=== PATIENT | female | born 1965 | race Caucasian/White ===

== ENCOUNTER → 2020-03-19 10:15 | Outpatient (CLI) | payer OTHER, SELFPAY ==
--- NOTE | ~2020-03-19 | US_ITS ---
EXAMINATION: US soft tissue UE LT DATE: 03/19/2020 10:30 INDICATION: Localized swelling, mass and lump at the posterior left upper arm. TECHNIQUE: Multiple grayscale and Doppler ultrasound images of the of concern at the posterior left u pper arm were obtained. COMPARISON: None FINDINGS: There is a normal appearance to subcutaneous fat and underlying musculature in the region of concern. No abnormal masses or fluid collections identified. IMPRESSION: 1. Normal study. No correlate identified for reported palpable abnormality at the posterior left uppe r arm. Reviewed, dictated and finalized at location A. IMPRESSION: 1. Normal study. No correlate identified for reported palpable abnormality at t he posterior left upper arm.
== END ==
PROVIDERS: PCP Family Medicine; Visit Provider Family Medicine
DX: R22.9 Localized swelling, mass and lump, unspecified (principal)
CPT/HCPCS: 76882

== ENCOUNTER 2020-05-22 00:23 | Outpatient (CLI) | payer OTHER, SELFPAY ==
[2020-05-22 19:00] LABS: SARS-CoV-2 RNA PCR Negative
== END 2020-05-22 00:24 | disposition home or self-care (01) ==
LOC: ANHCOVIDDT 00:23
PROVIDERS: PCP Family Medicine; Visit Provider Surgery Plastic and Reconstructive Surgery
DX: Z01.812 Encounter for preprocedural laboratory examination (principal); Z20.828 Contact with and (suspected) exposure to other viral communicable diseases; M67.439 Ganglion, unspecified wrist
CPT/HCPCS: 87635; C9803; U0003

== ENCOUNTER 2020-05-24 00:57 | Day surgery (SDC) | payer OTHER, SELFPAY ==
[2020-05-14 14:12] VITALS: BMI 23.4
[2020-05-24] MEDS: LACTATED RINGERS 1,000 ML 30 ML IV CONT (09:00)
--- NOTE | 2020-05-24 09:46 | WPDANESEPPF ---
Anes - Initial Pre Proc Eval Procedure: Operation Date: 05/24/20 10:30 Proposed Procedures p Excision Ganglion Cyst Right Wrist - Endy Espinoza MD Date/Time: 05/24/20 09:46 Surgeon: Endy Espinoza MD Pre Op Diagnosis: Ganglion Cyst Right Wrist Patient Data Age: 54 Gender: F Height: 5 ft 7 in Weight: 71.5 kg Allergies Allergy/AdvReac Type Severity Reaction Status Date / Time No Known Allergies Allergy Mild Verified 05/24/20 09:13 Home Medications Medication Instructions Recorded Confirmed Type ivermectin 1 % topical cream 1 applic TOPICAL DAILY 04/30/20 05/24/20 History calcium carbonate-vitamin D3 1 tablet PO DAILY 05/14/20 05/24/20 History [Calcium 500 + D] cholecalciferol (vitamin D3) 50 mcg PO DAILY 05/14/20 05/24/20 History [Vitamin D3] cranberry 500 mg PO DAILY 05/14/20 05/24/20 History multivit with min-folic acid 1 mg PO DAILY 05/14/20 05/24/20 History [Adult One Daily Multivitamin] docusate sodium 100 mg capsule 100 mg PO BID #14 cap 05/21/20 05/24/20 Rx ondansetron HCl 4 mg tablet 4 mg PO Q6H PRN #30 tablet 05/21/20 05/24/20 Rx hydrocodone 5 mg-acetaminophen 325 1 tablet PO Q6H PRN #15 tablet 05/23/20 05/24/20 Rx mg tablet Patient hx anesthesia problems: none Family hx anesthesia problems: none PMFSH Past Medical History Medical History History of shingles Surgical History Surgical History History of Family History Family History Father Hypertension Carcinoma of colon Malignant neoplasm of prostate Grandparent Cerebrovascular accident Other Family history of coronary artery disease Social History Social History Smoking status: Never smoker Second hand tobacco smoke exposure: No Alcohol intake: current Drinks per week: 3 Living arrangements: with family Anes - Eval Final PreProcedure Day of Procedure 05/24/20 09:46 Patient weight: normal Heart: regular rate and rhythm Lungs: clear to auscultation Airway: Mallampati scale class II Neurological: alert and oriented Last oral intake: >/= 8 hours ASA classification: I Emergent: no Anesthetic plan: proceed Anesthesia type and monitoring: general GIVS and standard monitoring Informed Consent: The patient's anesthetic plan and its attendant risks and benefits were discussed with the patient/family/POA. Questions were solicited and answers provided to the satisfaction of the patient/family/POA.
--- NOTE | 2020-05-24 10:30 | SUR.PREOP ---
PT INFORMED OF DELAY W/SURGEON/ ACKNOWLEDGES UNDERSTANDING/COMFORT MEASURES PROVIDED.
--- NOTE | 2020-05-24 10:55 | WPDHPUPDATE1 ---
History and Physical Update Update Date/Time: 05/24/20 10:55 History and Physical has been reviewed, including an updated exam of the patient. There are NO changes in the patient's condition. Risks, benefits, and alternatives have been discussed and questions answered. Patient agrees to proceed with procedure.
--- NOTE | 2020-05-24 11:17 | PM.PROC ---
Procedure Note - Detailed Date of procedure: 05/24/20 Pre-op diagnosis: Ganglion Cyst Right Wrist Post-op diagnosis: same Procedure performed: Excision right dorsal wrist ganglion Description of procedure: Patient was marked in the preoperative holding area with her verification. She was taken to the operating room placed supine on the operating room table. Anesthesia was provided by anesthesiology and prepped and draped in a standard sterile fashion. Surgical time-out was taken. 1% lidocaine and 0.25% Marcaine with epinephrine was used anesthetize locally. Esmarch was used to exsanguinate the arm and tourniquet inflated to 250 mmHg. Fifteen blade used to make an incision over the mass. Dissection was continued down to the was identified completely removed coming off joint space. There is no evidence of neurovascular or tendon injury. Tourniquet was released. I verified hemostasis. Irrigated. Closed with 5 0 nylon. Xeroform fluffs Shane and an Alex were used for final dressing. She was woken taken the PACU without difficulty. All instrument sponge counts were correct at the end of the case. Anesthesia: MAC Surgeon: Endy Espinoza MD Estimated blood loss (mL): 5 Drains: No Packing: No Pathology: yes (Ganglion cyst) Complications: No immediate complications Condition: stable Disposition: PACU Findings: Cyst wall identified. Followed to base and removed. No evidence of neurovascular or tendon injury.
[2020-05-24] MEDS: ceFAZolin 2 GM/D5W 50 ML 2 GM/50 ML BAG IVPB (11:21)
[2020-05-24] MEDS: LIDO 1%/EPINEPHRINE 1:100,000 20 ML VIAL INFILTRATE (11:53)
[2020-05-24 12:07] VITALS: BP 92/51; PULSE 70; RESP 14; O2SAT 97
[2020-05-24 12:37] VITALS: BP 107/59; PULSE 69; RESP 14
[2020-05-24 13:07] VITALS: BP 113/61; PULSE 60; RESP 14
[2020-05-24 13:25] VITALS: BP 114/54; PULSE 65; RESP 14
== END 2020-05-24 13:35 | disposition home or self-care (01) ==
PROVIDERS: PCP Family Medicine; Visit Provider Surgery Plastic and Reconstructive Surgery
PROC: (CPT 25111; principal; 2020-05-24 10:30)
DX: M67.431 Ganglion, right wrist (principal)
CPT/HCPCS: 25111; 88305; J0690; J2250; J2704; J3010; J7120

== ENCOUNTER → 2020-09-10 15:24 | Outpatient (CLI) | payer OTHER, SELFPAY ==
--- NOTE | ~2020-09-10 | MM_ITS ---
EXAMINATION: MM screening [facility] BI w paulino HISTORY: Screening mammogram TECHNIQUE: Craniocaudal and mediolateral oblique 3-D tomosynthesis images were obtained and synthetic 2-D images were generated. CAD analysis was submitted and interpreted. COMPARISON: 08/19/2019, 06/14/2018, 09/19/2016 BREAST PARENCHYMAL COMPOSITION: The breasts are heterogeneously dense, which may obscure small masses . FINDINGS: There is no evidence of suspicious mass, calcification, or architectural distortion to sugg est malignancy in either breast. There has been no suspicious interval change. IMPRESSION: 1. No mammographic evidence of malignancy. 2. Recommend routine screening mammography in one year. BI-RADS Category 1: Negative Reviewed, dictated and finalized at location A. [employer]
== END ==
PROVIDERS: PCP Family Medicine; Visit Provider Obstetrics & Gynecology
DX: Z12.31 Encounter for screening mammogram for malignant neoplasm of breast (principal)
CPT/HCPCS: 77063; 77067

== ENCOUNTER 2021-06-03 00:29 | Day surgery (SDC) | payer OTHER, SELFPAY ==
[2021-05-29 13:07] VITALS: BMI 24.0
--- NOTE | 2021-05-31 15:29 | PM.HPGS ---
History of Present Illness History of Present Illness Consent: Risks, benefits, and alternatives have been discussed and questions answered. Patient agrees to proceed with procedure. Chief complaint: dysphagia Narrative: Michelle Paulino is a 55 year old female is referred by Dr. Luis WHELAN for evaluation of dysphagia. Michelle reports that for approximately 1-2 years now with the sensation of something caught in her throat. she has not actually had a feeling that food is not going down, nor has she had to leave the table because something felt stuck. The fullness in her throat is continuous and began almost 1 year ago.Sensation is located right above the sternal notch. The sensation is intermittent but it does happen daily. Back in January, she had a laryngoscopy that showed mucous stranding and edema and erythema of the atenoid cartilage and post-cricoid space suggestive of reflux (records reviewed). She was started on omeprazole 40 mg daily which she has taken daily for past 6 months with little relief in symptoms. She can not identify any particular triggers that make the sensation worse or if they happen at a particular time of day. States sensation is not always associated with eating or drinking but does occur during these times. She denies any coughing food back up or coughing with drinking. She denies any N/V. She does have occasional heartburn associated with large meals. She denies any abdominal pain or changes in bowel habits. No fevers or weight loss. No family hx of esophageal cancers and she is a non-smoker. Never had EGD. Review of Systems Review of Systems: All systems reviewed & are unremarkable except as noted in HPI and below PMFSH Past Medical History Medical History History of shingles Surgical History Surgical History History of Family History Family History Father Hypertension Carcinoma of colon Malignant neoplasm of prostate Grandparent Cerebrovascular accident Other Family history of coronary artery disease Social History Social History Smoking status: Never smoker Second hand tobacco smoke exposure: No Alcohol intake: current Drinks per week: 3 Alcohol use details: social Substance use: never Substance use type: does not use Living arrangements: with family Spiritual care concerns: No Meds Home Medications and Allergies Home Medications Medication Instructions Recorded Confirmed Type ivermectin 1 % topical cream 1 applic TOPICAL DAILY 04/30/20 06/03/21 History Adult One Daily Multivitamin 1 mg PO DAILY 05/14/20 06/03/21 History calcium carbonate-vitamin D3 1 tablet PO DAILY 05/14/20 06/03/21 History [Calcium 500 + D] cholecalciferol (vitamin D3) 50 mcg PO DAILY 05/14/20 06/03/21 History [Vitamin D3] omeprazole 40 mg capsule,delayed 40 mg PO DAILY 09/06/20 06/03/21 History release chondroitin sulfate 600 2 tablet PO DAILY tablet 05/14/21 06/03/21 History mg-turmeric 125 mg tablet cranberry 500 mg capsule 2,000 mg PO DAILY cap 05/14/21 06/03/21 History fluticasone propionate 50 1 spray INTRANASAL DAILY 05/14/21 06/03/21 History mcg/actuation nasal spray,suspension Allergies Allergy/AdvReac Type Severity Reaction Status Date / Time No Known Allergies Allergy Mild Verified 06/03/21 08:45 Exam Const: General: alert Orientation/consciousness: patient oriented x3 Resp: Auscultation: clear to auscultation bilaterally Cardio: Rhythm: regular rhythm GI: GI Palp: Yes Soft to palpation and No Tenderness to palpation present (GI) Neuro: General: patient oriented x3 Assessment and Plan Assessment and plan (1) Dysphagia: Code(s): R13.10 - Dysphagia, unspecified Status: Acute Assessment and P
[2021-06-03 08:46] VITALS: BP 115/53; PULSE 69; RESP 18; TEMP 36.8; O2SAT 100; BMI 24.3
[2021-06-03] MEDS: LACTATED RINGERS 1,000 ML 150 ML IV CONT (08:48)
--- NOTE | 2021-06-03 09:28 | WPDANESEPPF ---
Anes - Initial Pre Proc Eval Procedure: Operation Date: 06/03/21 09:30 Proposed Procedures p Esophagogastroduodenoscopy - Beka Seymour MD Date/Time: 06/03/21 09:28 Surgeon: Beka Seymour MD Pre Op Diagnosis: dysphagia Patient Data Age: 55 Gender: F Height: 1.7 m Weight: 70.5 kg Last Vital Signs Temp 98.3 F 06/03/21 08:46 Pulse 69 06/03/21 08:46 Resp 18 06/03/21 08:46 BP 115/53 L 06/03/21 08:46 Pulse Ox 100 06/03/21 08:46 Allergies Allergy/AdvReac Type Severity Reaction Status Date / Time No Known Allergies Allergy Mild Verified 06/03/21 08:45 Home Medications Medication Instructions Recorded Confirmed Type ivermectin 1 % topical cream 1 applic TOPICAL DAILY 04/30/20 06/03/21 History Adult One Daily Multivitamin 1 mg PO DAILY 05/14/20 06/03/21 History calcium carbonate-vitamin D3 1 tablet PO DAILY 05/14/20 06/03/21 History [Calcium 500 + D] cholecalciferol (vitamin D3) 50 mcg PO DAILY 05/14/20 06/03/21 History [Vitamin D3] omeprazole 40 mg capsule,delayed 40 mg PO DAILY 09/06/20 06/03/21 History release chondroitin sulfate 600 2 tablet PO DAILY tablet 05/14/21 06/03/21 History mg-turmeric 125 mg tablet cranberry 500 mg capsule 2,000 mg PO DAILY cap 05/14/21 06/03/21 History fluticasone propionate 50 1 spray INTRANASAL DAILY 05/14/21 06/03/21 History mcg/actuation nasal spray,suspension Patient hx anesthesia problems: none Family hx anesthesia problems: none Results Review: All pre-operative results and documents have been reviewed as part of the pre-operative evaluation. [facility] Past Medical History Medical History History of shingles Surgical History Surgical History History of Family History Family History Father Hypertension Carcinoma of colon Malignant neoplasm of prostate Grandparent Cerebrovascular accident Other Family history of coronary artery disease Social History Social History Smoking status: Never smoker Second hand tobacco smoke exposure: No Alcohol intake: current Drinks per week: 3 Alcohol use details: social Substance use: never Substance use type: does not use Living arrangements: with family Spiritual care concerns: No Anes - Eval Final PreProcedure Day of Procedure 06/03/21 09:28 Patient weight: normal Heart: regular rate and rhythm Lungs: clear to auscultation Airway: Mallampati scale class II Neurological: alert and oriented Last oral intake: >/= 8 hours ASA classification: II Emergent: no Anesthetic plan: proceed Anesthesia type and monitoring: general GIVS and standard monitoring Results Review: All pre-operative results and documents have been reviewed as part of the pre-operative evaluation. Informed Consent: The patient's anesthetic plan and its attendant risks and benefits were discussed with the patient/family/POA. Questions were solicited and answers provided to the satisfaction of the patient/family/POA.
[2021-06-03 09:48] VITALS: BP 89/47; PULSE 67; RESP 17; O2SAT 100
[2021-06-03 09:58] VITALS: BP 93/45; PULSE 65; RESP 19; O2SAT 100
[2021-06-03 10:08] VITALS: BP 124/65; PULSE 60; RESP 19; O2SAT 100
== END 2021-06-03 10:25 | disposition home or self-care (01) ==
PROVIDERS: PCP Family Medicine; Visit Provider Internal Medicine Gastroenterology
PROC: 0DJ08ZZ Inspection of Upper Intestinal Tract, Via Natural or Artificial Opening Endoscopic (ICD-10-PCS; CPT 43235; principal; 2021-06-03 09:30)
DX: K25.9 Gastric ulcer, unspecified as acute or chronic, without hemorrhage or perforation (principal); R13.10 Dysphagia, unspecified
CPT/HCPCS: 43239; 87081; 88305; J2704; J7120

== ENCOUNTER 2021-09-27 00:42 | Day surgery (SDC) | payer OTHER, SELFPAY ==
[2021-09-19 09:15] VITALS: BMI 24.1
[2021-09-27 09:35] VITALS: BP 113/52; PULSE 63; RESP 18; TEMP 37.7; O2SAT 100; BMI 24.3
--- NOTE | 2021-09-27 09:36 | WPDGICN ---
Assessment and Plan Assessment and plan (1) Gastric ulcer: Code(s): K25.9 - Gastric ulcer, unspecified as acute or chronic, without hemorrhage or perforation Status: Inactive Assessment and Plan: EGD with possible biopsy or dilatation or cautery. GI Consult Note Consult date/time: 09/27/21 09:36 HPI: Michelle Paulino is a 56 year old female who comes in for EGD for evaluation of ulcers. Several months ago she was found to have multiple linear gastric ulcers. This was despite the fact that she had been on omeprazole for about 5 months prior to that. The omeprazole had been started because she had had a sticking sensation in her throat and ENT evaluation revealed some erythema suggestive of possible reflux related issues. That symptom however had not responded to the omeprazole. Although did not find a stricture, her EGD revealed multiple linear ulcers and also gastritis in the antrum. She was negative for H pylori. At that time she had been occasionally using ibuprofen, perhaps twice a week, for headaches. She is not having any symptoms now. The sticking sensation that she was having in her throat is less frequent. She denies abdominal pain nausea or vomiting. Review of Systems Review of Systems: All systems reviewed & are unremarkable except as noted in HPI and below PMFSH Past Medical History Medical History Gastric ulcer Migraines Surgical History Surgical History History of Family History Family History Father Hypertension Carcinoma of colon Malignant neoplasm of prostate Grandparent Cerebrovascular accident Mother Cerebrovascular accident Sibling No problems noted. 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 Gender identity (if verbalized by the patient): Female Spiritual care concerns: No Meds Home Medications and Allergies Home Medications Medication Instructions Recorded Confirmed Type ivermectin 1 % topical cream 1 applic TOPICAL DAILY 04/30/20 09/19/21 History calcium carbonate-vitamin D3 1 tablet PO DAILY 05/14/20 09/19/21 History [Calcium 500 + D] cholecalciferol (vitamin D3) 50 mcg PO DAILY 05/14/20 09/19/21 History [Vitamin D3] multivit with min-folic acid 1 mg PO DAILY 05/14/20 09/19/21 History [Adult One Daily Multivitamin] chondroitin sulfate 600 2 tablet PO DAILY tablet 05/14/21 09/19/21 History mg-turmeric 125 mg tablet cranberry 500 mg capsule 2,000 mg PO DAILY cap 05/14/21 09/19/21 History sucralfate 1 gram tablet 1 g PO QID #120 tablet 06/04/21 09/19/21 Rx Allergies Allergy/AdvReac Type Severity Reaction Status Date / Time No Known Allergies Allergy Mild Verified 09/27/21 09:34 Exam Const: General: alert Orientation/consciousness: patient oriented x3 Resp: Auscultation: clear to auscultation bilaterally Cardio: Rhythm: regular rhythm GI: GI Palp: Yes Soft to palpation and No Tenderness to palpation present (GI) Neuro: General: patient oriented x3
--- NOTE | 2021-09-27 09:41 | WPDANESEPPF ---
Anes - Initial Pre Proc Eval Procedure: Operation Date: 09/27/21 11:00 Proposed Procedures p Esophagogastroduodenoscopy - Beka Seymour MD Date/Time: 09/27/21 09:41 Surgeon: Beka Seymour MD Pre Op Diagnosis: gastric ulcer Patient Data Age: 56 Gender: F Height: 1.7 m Weight: 70.3 kg Last Vital Signs Temp 37.7 C H 09/27/21 09:35 Pulse 63 09/27/21 09:35 Resp 18 09/27/21 09:35 BP 113/52 L 09/27/21 09:35 Pulse Ox 100 09/27/21 09:35 Allergies Allergy/AdvReac Type Severity Reaction Status Date / Time No Known Allergies Allergy Mild Verified 09/27/21 09:34 Home Medications Medication Instructions Recorded Confirmed Type ivermectin 1 % topical cream 1 applic TOPICAL DAILY 04/30/20 09/19/21 History calcium carbonate-vitamin D3 1 tablet PO DAILY 05/14/20 09/19/21 History [Calcium 500 + D] cholecalciferol (vitamin D3) 50 mcg PO DAILY 05/14/20 09/19/21 History [Vitamin D3] multivit with min-folic acid 1 mg PO DAILY 05/14/20 09/19/21 History [Adult One Daily Multivitamin] chondroitin sulfate 600 2 tablet PO DAILY tablet 05/14/21 09/19/21 History mg-turmeric 125 mg tablet cranberry 500 mg capsule 2,000 mg PO DAILY cap 05/14/21 09/19/21 History sucralfate 1 gram tablet 1 g PO QID #120 tablet 06/04/21 09/19/21 Rx Patient hx anesthesia problems: none Family hx anesthesia problems: none Results Review: All pre-operative results and documents have been reviewed as part of the pre-operative evaluation. [facility] Past Medical History Medical History Gastric ulcer Migraines Surgical History Surgical History History of Family History Family History Father Hypertension Carcinoma of colon Malignant neoplasm of prostate Grandparent Cerebrovascular accident Mother Cerebrovascular accident Sibling No problems noted. 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 Gender identity (if verbalized by the patient): Female Spiritual care concerns: No Anes - Eval Final PreProcedure Day of Procedure 09/27/21 09:41 Patient weight: normal Heart: regular rate and rhythm Lungs: clear to auscultation Airway: Mallampati scale class II Neurological: alert and oriented Last oral intake: >/= 8 hours ASA classification: II Emergent: no Anesthetic plan: proceed Anesthesia type and monitoring: general GIVS and standard monitoring Results Review: All pre-operative results and documents have been reviewed as part of the pre-operative evaluation. Informed Consent: The patient's anesthetic plan and its attendant risks and benefits were discussed with the patient/family/POA. Questions were solicited and answers provided to the satisfaction of the patient/family/POA.
[2021-09-27] MEDS: LACTATED RINGERS 1,000 ML 150 ML IV CONT (09:43)
[2021-09-27] MEDS: BENZOCAINE (*SP) 60 ML SPRAY CAN (HURRICAINE) 1 SPRAY MUCOUS MEM (09:51)
[2021-09-27 09:59] VITALS: BP 105/58; PULSE 66; RESP 14; O2SAT 99
[2021-09-27 10:09] VITALS: BP 107/68; PULSE 56; RESP 15; O2SAT 99
[2021-09-27 10:19] VITALS: BP 104/59; PULSE 54; RESP 15; O2SAT 100
== END 2021-09-27 10:32 | disposition home or self-care (01) ==
PROVIDERS: PCP Family Medicine; Visit Provider Internal Medicine Gastroenterology
PROC: 0DJ08ZZ Inspection of Upper Intestinal Tract, Via Natural or Artificial Opening Endoscopic (ICD-10-PCS; CPT 43235; principal; 2021-09-27 11:00)
DX: Z09 Encounter for follow-up examination after completed treatment for conditions other than malignant neoplasm (principal); K29.60 Other gastritis without bleeding; Z87.11 Personal history of peptic ulcer disease
CPT/HCPCS: 43239; 87081; J2704; J7120

== ENCOUNTER → 2021-11-05 10:25 | Outpatient (CLI) | payer OTHER, SELFPAY ==
--- NOTE | ~2021-11-05 | MM_ITS ---
EXAMINATION: MM screening [facility] BI w paulino HISTORY: Screening mammogram TECHNIQUE: Craniocaudal and mediolateral oblique 3-D tomosynthesis images were obtained and synthetic 2-D images were generated. CAD analysis was submitted and interpreted. COMPARISON: 09/10/2020, 08/19/2019, 06/14/2018 BREAST PARENCHYMAL COMPOSITION: The breasts are heterogeneously dense, which may obscure small masses . FINDINGS: There is no suspicious mass, calcification, or architectural distortion to suggest malignan cy in either breast. There has been no suspicious interval change. IMPRESSION: 1. No mammographic evidence of malignancy. 2. Recommend routine screening mammography in one year. BI-RADS Category 1: Negative Reviewed, dictated and finalized at location A.
== END ==
PROVIDERS: PCP Family Medicine; Visit Provider Obstetrics & Gynecology
DX: Z12.31 Encounter for screening mammogram for malignant neoplasm of breast (principal)
CPT/HCPCS: 77063; 77067

== ENCOUNTER → 2021-12-20 10:15 | Outpatient (CLI) | payer OTHER, SELFPAY ==
--- NOTE | ~2021-12-20 | DEXA_ITS ---
Bone Density Report Name: CORTNEY ALSTON Age: 56 Sex: Female Ethnicity: White Date of : 1965 Indication: postmenopausal; screening for osteoporosis; parental hip fracture; Referring Provider: Marissa Ponce Study: Bone densitometry was performed. Exam Date: December 20, 2021 Accession number: [id number] Bone Density: Region BMD T-score Z-score Classification AP Spine (L1-L4) 0.748 -2.7 -1.6 Osteoporosis Femoral Neck (Left) 0.623 -2.0 -0.9 Osteopenia Total Hip (Left) 0.733 -1.7 -1.0 Osteopenia Femoral Neck (Right) 0.677 -1.5 -0.4 Osteopenia Total Hip (Right) 0.738 -1.7 -0.9 Osteopenia Total Hip Mean 0.736 -1.7 -1.0 Osteopenia World Health Organization criteria for BMD impression classify patients as: Normal (T-score at or above -1.0), Osteopenia (T-score between -1.0 and -2.5), or Osteoporosis (T-score at or below -2.5). 10-year Fracture Risk: FRAX not reported because: Some T-score for Spine Total or Hip Total or Femoral Neck at or below -2.5 Clinical Information Provided by Patient: Parent has had a hip fracture Has used the following medications: Vitamin D, Calcium Patient maximum height was 67 Menopause Age: 50 Drinks caffeinated beverages Onset of menses at age 14 Number of children 2 Impression: The patient has osteoporosis, based on the Total Spine T-score. The patient has risk factors, including: parental hip fracture. Discussion: INCREASED RISK OF FRACTURE. BONE DENSITY IS UNDESIRABLY LOW AT ONE OR MORE SKELETAL SITES, CONSISTENT WITH POSTMENOPAUSAL OSTEOPOROSIS. This patient's lowest T-score meets the World Health Organization's (WHO) criteria for osteoporosis at one or more sites (T-score -2.5 or below). In untreated patients, the risk of osteoporotic fracture increases approximately two-fold for each 1.0 SD decrease in T-score. Low bone density is not the only risk factor for fracture; also consider factors such as patient's age, frailty or poor health, risk of falling, risk of injury, previous osteoporotic fracture, family history of osteoporosis, cigarette smoking, low body weight, etc. Not everyone with low bone mineral density has osteoporosis; osteomalacia and other metabolic bone disorders should also be considered. Patients who have osteoporosis should be evaluated for specific diseases and conditions (secondary causes) that may cause or contribute to bone loss. The [place] [employer] Endocrinologists (AACE) and National Osteoporosis Foundation (NOF) recommend pharmacologic intervention for all postmenopausal women whose T-score is in this range. The patient should follow a healthful lifestyle (good nutrition with adequate calcium and vitamin D, and appropriate weight-bearing exercise). Follow-Up: Consider a repeat BMD and Vertebral Fracture Assessment (VFA) exam in 2 years o
== END ==
PROVIDERS: PCP Family Medicine; Visit Provider Physician Assistant Medical
DX: Z13.820 Encounter for screening for osteoporosis (principal); M81.0 Age-related osteoporosis without current pathological fracture; M85.851 Other specified disorders of bone density and structure, right thigh; M85.852 Other specified disorders of bone density and structure, left thigh
CPT/HCPCS: 77080

== ENCOUNTER 2022-10-27 09:46 | Outpatient (CLI) | payer OTHER, SELFPAY ==
--- NOTE | ~2022-10-27 | US_ITS ---
Abdominal Sonogram: Real-time sonographic imaging of the abdomen was performed. Clinical History: Epigastric pain Findings: The liver appears normal with no evidence of mass lesion or bile duct dilatation. Main por meagan vein demonstrates normal direction of flow. The spleen is nonvisualized. The gallbladder is well distended, and appears normal with no evidence of gallstone or wall thickening. The common bile duct measures 5 mm. The visualized pancreas, aorta, and IVC are unremarkable. The right kidney measures 11.3 cm in length and the left kidney measures 10.6 cm. There is no hydronephrosis or renal calculu s. Impression: No significant abnormality seen. Spleen not visualized. Reviewed, dictated and finalized at [facility]. Impression: No significant abnormality seen. Spleen not visualized.
== END 2022-10-27 09:47 | disposition home or self-care (01) ==
PROVIDERS: PCP Family Medicine; Visit Provider Internal Medicine Gastroenterology
DX: R10.13 Epigastric pain (principal)
CPT/HCPCS: 76700

== ENCOUNTER 2022-12-05 12:50 | Outpatient (CLI) | payer OTHER, SELFPAY ==
--- NOTE | ~2022-12-05 | MM_ITS ---
EXAMINATION: MM screening [facility] BI w paulino HISTORY: 11/05/2021, 09/10/2020, 08/19/2019 TECHNIQUE: Craniocaudal and mediolateral oblique 3-D tomosynthesis images were obtained and synthetic 2-D images were generated. CAD analysis was submitted and interpreted. COMPARISON: No prior mammogram is available for comparison at this institution. BREAST PARENCHYMAL COMPOSITION:The breasts are heterogeneously dense, which may obscure small masses. FINDINGS: No suspicious mass, calcification, or architectural distortion are identified in either amauri ast to suggest malignancy. There has been no suspicious interval change. IMPRESSION: No mammographic evidence of malignancy. Recommend routine screening mammography in one year. BI-RADS Category 1: Negative Reviewed, dictated and finalized at [facility].
== END 2022-12-05 12:51 ==
PROVIDERS: PCP Family Medicine; Visit Provider Student in an Organized Health Care Education/Training Program
DX: Z12.31 Encounter for screening mammogram for malignant neoplasm of breast (principal)
CPT/HCPCS: 77063; 77067

== ENCOUNTER 2022-12-16 07:51 | Outpatient (RCR) | payer OTHER, SELFPAY ==
--- NOTE | 2022-12-16 08:43 | PTOPEVDC ---
Assessment and note entered by Rose Moreno, PT Thank you for referring Michelle Paulino to [facility].? An evaluation has been completed. No further treatment is needed. Evaluation Information Assessment Status Evaluation/ discharge Diagnosis gait, balance issues Onset about one year ago Subjective Information reports she feels off balance and lean to side with going from sitting to standing, when sit a long time and when the chair does not have any arms; after 5-6 steps is able to regain her balance; no falls; is able to perform all of her home and work tasks; is active--walks at least 20 min/day and does yoga workouts at home--- does ok with these activities; vitals: sit/rest: 112/53 & HR 68; standing 109/51 79; after balance activities 120/53, 72; Educated pt on safety: with initial standing, stand for few seconds before walking; monitor BP as needed- issued her above #'s; check side effects of her meds; contact Dr Estevez if continue to have balance issues; Reported Pain Level Pain Score 0: Self Report Assessment PT Clinical Summary Michelle has the diagnosis of abnormality of gait and balance. She reports feel unsteady and lean to R or L with sitting to standing and start walking, unsteady 5-6 steps, then OK. And usually happens after she has been sitting awhile. She is active--walking 20 minutes/day and does yoga. With the evaluation: she has good LE strength, balance was normal score with Khanna balance test, 5 reps sit/stand and performed all balance activities without loss of balance. At rest, her BP was 112/53. After activity, it increased to 120/53. Discussed with pt and educated with initial standing, to hold standing position a few seconds before she starts walking, monitor BP as needed, check side effects of her meds and to notify dr if continue to have issues. Encouraged her to continue with her fitness activities. Discharge PT services. Plan of Care PT Services Indicated No
== END 2022-12-16 10:47 | disposition home or self-care (01) ==
LOC: ANHPT 07:51
PROVIDERS: PCP Family Medicine; Visit Provider Family Medicine
DX: R26.89 Other abnormalities of gait and mobility (principal)
CPT/HCPCS: 97161

== ENCOUNTER 2023-03-27 08:35 | Outpatient (CLI) | payer OTHER, SELFPAY ==
--- NOTE | ~2023-03-27 | XR_ITS ---
MODIFIED ESOPHAGRAM HISTORY: Dyskinesis of the esophagus TECHNIQUE: Modified barium esophagram was performed on 03/27/2023. I administered fluoroscopy and perf ormed the exam with speech pathologist. Patient was seated for lateral fluoroscopic imaging for silver stion of thin liquids, pudding, solids and quantified amounts, followed by thin liquids in uncontroll ed amounts. This was recorded on tape. A single fluoroscopic spot image was also recorded. The DAP fo r this procedure was 0.416 Gycm2. The amount of fluoroscopy time used during this procedure was 0.7 m inutes. FINDINGS: Oral stage: Adequate function. Pharyngeal stage: Adequate function. Cervical/esophageal stage: Adequate function. IMPRESSION: Patient tolerated regular consistency oral feedings in the upright position. Please rosanna elate with speech pathologist findings and specific feeding recommendations. Reviewed, dictated and finalized at location A. IMPRESSION: Patient tolerated regular consistency oral feedings in the upright position. Please correlate with speech pathologist findings and specific feedi ng recommendations.
--- NOTE | 2023-03-27 09:21 | REHSTMBS ---
Assessment and note entered by Nataliia Alvarenga, RADIOLOGY NURSE Modified Barium Swallow Evaluation Feeding Type Recommended Oral Food Consistency Regular, Level 7 Liquid Consistency Thin (0) ST Clinical Summary MODIFIED BARIUM SWALLOW STUDY The patient was seen for a Modified Barium Swallow study at the request of her physician. She reports that she has not been having difficulty swallowing at any time but that she has a constant feeling that something is in her throat. Patient reports occasional issues with allergies but also reports a history of gastroesophageal reflux disease; she indicated that being placed on medicine for the GERD has not prevented the globus sensation. Patient was presented with one sip of thin liquid contrast medium per spoon, and then thin liquid contrast medium per cup and per straw, pudding mixed with semi-solid contrast medium, and then a large bite of mariposa cracker coated with the semi- solid mixture. She exhibited quick swallows with complete clearing of the pharynx during each swallow of each consistency. Results indicate this patient's swallowing skills are judged to be within normal limits. She may remain on Regular Diet and Regular Liquids. She is referred back to her physician for further assessment of her complaints. Thank you for this referral.
== END 2023-03-27 08:36 | disposition home or self-care (01) ==
PROVIDERS: PCP Family Medicine; Visit Provider Family Medicine
DX: K22.4 Dyskinesia of esophagus (principal); R13.10 Dysphagia, unspecified
CPT/HCPCS: 92611

== ENCOUNTER 2023-04-23 01:00 | Day surgery (SDC) | payer OTHER, SELFPAY ==
[2023-04-16 14:46] VITALS: BMI 25.0
--- NOTE | 2023-04-16 14:47 | PC.NURSE ---
Report to the Outpatient Waiting Room, entrance under the green pavilion located off [facility], at time _0730_ on date 04-23-2023_. Planned Procedure Time: _0930_. Time changes happen often and if your time is changed the preop area will call you the afternoon before. - You and your visitor will be asked to self-screen and do not enter if you have any COVID symptoms. - A mask is optional within the hospital at this time. Patients may have clear liquids (water, carbonated beverages, clear teas, apple juice) until 3 hours prior to surgery with a maximum of 20 ounces. - No food from midnight until time of surgery Take the following medications with a SIP of water the morning of surgery: __None DO NOT STOP ANY OF YOUR OTHER PRESCRIPTION MEDICATIONS PRIOR TO SURGERY ?EXCEPT THE FOLLOWING Medications to discontinue per physician ____All vitamins and supplements Date to take last ybej___[id number] Please no make-up, nail icelandic, hairspray, perfume, deodorant, or body powder the day of surgery. No jewelry (including any body piercings) or valuables the day of surgery, leave them at home. Please take a shower or bath the night before, or the morning of, surgery with an antibacterial soap. Wear comfortable, loose fitting clothing. - Jewelry must be removed prior to entering the operating room. Rings and piercings that are not removed may be cut off. - The hospital will not accept responsibility for valuables. - Please leave all valuables, including medications, at home the day of surgery. If you are going home after surgery, a licensed special needs bus driver must drive you home. - NO public transportation without another adult if you receive anesthesia. - We recommend that an adult stay with you for 24 hours following discharge. - We also recommend that you do not drive, make important decision, drink alcoholic beverages, or take any drugs that were not prescribed by your health care provider for at least 24 hours after your discharge time. Follow any additional instructions given to you from your surgeon. If you or anyone in your household have experienced Covid symptoms in the past week, please notify your surgeon or the nurse liaison at the phone number below for possible testing. Telephone instructions given to _Patient__and asked if any additional questions and then verbalized understanding. Patient advised to call surgeon office or pre surgery nurse liaison [phone] if any additional questions.
--- NOTE | 2023-04-23 07:12 | WPDHPUPDATE1 ---
History and Physical Update Update Date/Time: 04/23/23 07:12 History and Physical has been reviewed, including an updated exam of the patient. There are NO changes in the patient's condition. Risks, benefits, and alternatives have been discussed and questions answered. Patient agrees to proceed with procedure.
[2023-04-23 07:40] VITALS: BP 105/51; PULSE 66; RESP 20; TEMP 36.8; O2SAT 100
[2023-04-23] MEDS: LACTATED RINGERS 1,000 ML 30 ML IV CONT (08:00)
--- NOTE | 2023-04-23 08:52 | WPDANESEPPF ---
Anes - Initial Pre Proc Eval Procedure: Operation Date: 04/23/23 09:30 Proposed Procedures p Excision Right Dorsal Wrist Ganglion Cyst - Kemal Gordillo MD Date/Time: 04/23/23 08:52 Surgeon: Kemal Gordillo MD Pre Op Diagnosis: right dorsal wrist ganglion cyst Patient Data Age: 57 Gender: F Height: 1.68 m Weight: 73.3 kg Last Vital Signs Temp 36.8 C 04/23/23 07:40 Pulse 66 04/23/23 07:40 Resp 20 04/23/23 07:40 BP 105/51 L 04/23/23 07:40 Pulse Ox 100 04/23/23 07:40 O2 Del Method Room Air 04/23/23 07:40 Allergies Allergy/AdvReac Type Severity Reaction Status Date / Time No Known Allergies Allergy Mild Verified 04/23/23 07:54 Home Medications Medication Instructions Recorded Confirmed Type ivermectin 1 % topical cream 1 applic topical DAILY 04/30/20 04/23/23 History (Soolantra) calcium carbonate 500 mg-vitamin 1 tablet PO DAILY 05/14/20 04/23/23 History D3 5 mcg (200 unit) tablet (Calcium 500 + D) cholecalciferol (vitamin D3) 50 50 mcg PO DAILY 05/14/20 04/23/23 History mcg (2,000 unit) capsule (Vitamin D3) multivitamin with minerals-folic 1 mg PO DAILY 05/14/20 04/23/23 History acid 0.4 mg tablet (Adult One Daily Multivitamin) cranberry 500 mg capsule 2,000 mg PO DAILY 05/14/21 04/23/23 History famotidine 20 mg tablet 20 mg PO DAILY 09/23/22 04/23/23 History ibandronate 150 mg tablet (Boniva) 150 mg PO MONTHLY #3 tabs 11/21/22 04/23/23 Rx pantoprazole 40 mg tablet,delayed See Rx Instructions .Route 03/16/23 04/23/23 Rx release .COMPLEX #90 tabs Patient hx anesthesia problems: none Family hx anesthesia problems: none Results Review: All pre-operative results and documents have been reviewed as part of the pre-operative evaluation. [facility] Past Medical History Medical History Balance problem Esophageal spasm Gastric ulcer Migraines Osteoporosis Surgical History Surgical History History of Family History Family History Father Hypertension Carcinoma of colon Malignant neoplasm of prostate Grandparent Cerebrovascular accident Mother Cerebrovascular accident Sibling No problems noted. 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 Gender identity (if verbalized by the patient): Female Spiritual care concerns: No Anes - Eval Final PreProcedure Day of Procedure 04/23/23 08:52 Patient weight: overweight Heart: regular rate and rhythm Lungs: clear to auscultation Airway: Mallampati scale class II Neurological: alert and oriented Last oral intake: >/= 8 hours ASA classification: II Emergent: no Anesthetic plan: proceed Anesthesia type and monitoring: general GIVS and standard monitoring Results Review: All pre-operative results and documents have been reviewed as part of the pre-operative evaluation. Informed Consent: The patient's anesthetic plan and its attendant risks and benefits were discussed with the patient/family/POA. Questions were solicited and answers provided to the satisfaction of the patient/family/POA.
[2023-04-23] MEDS: LIDO 1%/EPINEPHRINE 1:100,000 20 ML VIAL 3 ML INFILTRATE (10:09)
[2023-04-23 10:47] VITALS: BP 99/42; PULSE 64; RESP 14; O2SAT 95
[2023-04-23 11:15] VITALS: BP 93/33; PULSE 53; RESP 16; O2SAT 98
--- NOTE | 2023-04-23 11:25 | W.PM.PROC2 ---
Procedure Note - Detailed Date of Procedure 04/23/23 Pre-op Diagnosis right dorsal wrist ganglion cyst Post-op Diagnosis Same Procedure Performed Excision of right dorsal wrist ganglion cyst Surgeon Kemal Gordillo MD Anesthesia MAC Description of Procedure The subcutaneous mass on the patient's right dorsal wrist was marked with her consent. She was taken to the operating room she was placed supine on the operating table. The extremity was prepped and draped in usual fashion as she was administered IV sedation. The site was marked and locally infiltrated with 1% lidocaine with epinephrine. The tourniquet was inflated to 250 mmHg. The transverse incision was made and dissection was carried bluntly through the subcutaneous tissue to the ganglion cyst this was a multi-lobulated approximately 1 cm ganglion cyst. This was stripped off around this periphery and down to its base and was avulsed. There was no opening to the cyst capsule. No sutures were placed deep. The wound was approximated with couple of layers of 4-0 Monocryl. The usual bandage with Xeroform was applied the tourniquet was released prior to skin closure. She is discharged with instructions in wound care and follow-up with a prescription for hydrocodone 5/325 number 5 Estimated Blood Loss -2.0 Drains No Packing No Pathology None sent Complications No immediate complications Condition Stable Disposition Same day
[2023-04-23 11:45] VITALS: BP 92/49; PULSE 56; RESP 16
== END 2023-04-23 12:06 | disposition home or self-care (01) ==
PROVIDERS: PCP Family Medicine; Visit Provider Plastic Surgery
PROC: (CPT 25112; principal; 2023-04-23 09:30)
DX: M67.431 Ganglion, right wrist (principal); M81.0 Age-related osteoporosis without current pathological fracture; Z82.3 Family history of stroke; Z87.11 Personal history of peptic ulcer disease
CPT/HCPCS: 25112; A9270; J2250; J2405; J2704; J3010; J7120

== ENCOUNTER 2023-12-28 12:47 | Outpatient (CLI) | payer OTHER, SELFPAY ==
--- NOTE | ~2023-12-28 | MM_ITS ---
EXAMINATION: MM screening [facility] BI w paulino HISTORY: Screening TECHNIQUE: Craniocaudal and mediolateral oblique 3-D tomosynthesis images were obtained and synthetic 2-D images were generated. CAD analysis was submitted and interpreted. COMPARISON: Comparison to multiple prior studies sequentially, with oldest reviewed study dated 09/19. BREAST PARENCHYMAL COMPOSITION: Dense: The breasts are heterogeneously dense, which may obscure small masses FINDINGS: There is no evidence of suspicious mass, calcification, or architectural distortion to sugg est malignancy in either breast. There has been no suspicious interval change. IMPRESSION: 1. No mammographic evidence of malignancy. 2. Recommend routine screening mammography in one year. BI-RADS Category 1: Negative Reviewed, dictated and finalized at location A.
== END 2023-12-28 12:48 ==
LOC: MICIMG 12:48
PROVIDERS: PCP Family Medicine; Visit Provider Student in an Organized Health Care Education/Training Program
DX: Z12.31 Encounter for screening mammogram for malignant neoplasm of breast (principal)
CPT/HCPCS: 77063; 77067

== ENCOUNTER 2024-04-18 14:14 | Outpatient (CLI) | payer OTHER, SELFPAY ==
--- NOTE | ~2024-04-18 | DEXA_ITS ---
Bone Density Report Name: CORTNEY ALSTON Age: 58 Sex: Female Ethnicity: White Date of : 1965 Indication: postmenopausal; screening for osteoporosis; parental hip fracture; Referring Provider: LUIS ANTONIO ROBERTS Study: Bone densitometry was performed. Exam Date: April 18, 2024 Accession number: [id number] Bone Density: Region BMD T-score Z-score Classification AP Spine(L2, L3, L4) 0.732 -3.2 -1.8 Osteoporosis Femoral Neck (Left) 0.669 -1.6 -0.4 Osteopenia Total Hip (Left) 0.740 -1.7 -0.8 Osteopenia Femoral Neck (Right) 0.692 -1.4 -0.2 Osteopenia Total Hip (Right) 0.768 -1.4 -0.6 Osteopenia Femoral Neck Mean 0.681 -1.5 -0.3 Osteopenia Total Hip Mean 0.754 -1.5 -0.7 Osteopenia World Health Organization criteria for BMD impression classify patients as: Normal (T-score at or above -1.0), Osteopenia (T-score between -1.0 and -2.5), or Osteoporosis (T-score at or below -2.5). 10-year Fracture Risk: FRAX not reported because: Some T-score for Spine Total or Hip Total or Femoral Neck at or below -2.5 Treated for osteoporosis Clinical Information Provided by Patient: Parent has had a hip fracture Is being treated for osteoporosis Has used the following medications: Boniva (i.e. ibandronate), Vitamin D Patient maximum height was 67 Menopause Age: 50 No regular weight bearing exercise Drinks caffeinated beverages Onset of menses at age 14 Number of children 2 Impression: The patient has osteoporosis, based on the Total Spine T-score. The patient has risk factors, including: parental hip fracture. Discussion: It is important to ask patients whether they are taking their medications and to encourage continued and appropriate compliance with their osteoporosis therapies to reduce fracture risk. It is also important to review their risk factors and encourage appropriate calcium and vitamin D intakes, exercise, fall prevention and other lifestyle measures. Follow-Up: Consider a repeat BMD and Vertebral Fracture Assessment (VFA) exam in 2 years or sooner if medically necessary, to reassess this patient's status. Reported by: ARMIDA on 04/26/2024 11:28:00 AM. Reviewed, dictated and finalized at location A.
== END 2024-04-18 14:15 | disposition home or self-care (01) ==
LOC: CHSIMG 14:15
PROVIDERS: PCP Family Medicine; Visit Provider Family Medicine
DX: Z78.0 Asymptomatic menopausal state (principal); M81.0 Age-related osteoporosis without current pathological fracture; M85.89 Other specified disorders of bone density and structure, multiple sites
CPT/HCPCS: 77080

== ENCOUNTER 2024-04-25 07:34 | Outpatient (CLI) | payer OTHER, SELFPAY ==
--- NOTE | ~2024-04-25 | NM_ITS ---
EXAMINATION: NM hepatobiliary wo pharm DATE: 04/25/2024 10:23 INDICATION: Right upper quadrant abdominal pain. COMPARISON: None. TECHNIQUE: 4.94 mCi Tc-99m mebrofenin (Choletec) was administered intravenously. Scintigraphic image s of the abdomen were obtained for one hour. Then, the patient drank 8 oz Ensure, and imaging was con tinued for 60 minutes. FINDINGS: There is normal clearance of radiotracer from the blood pool. There is homogeneous tracer u ptake by the liver. Activity progresses to the bowel and gallbladder. Gallbladder ejection fraction (GBEF) was 32%. Note that with this technique, normal GBEF >= 33%. IMPRESSION: 1. Low gallbladder ejection fraction, consistent with gallbladder dysfunction and/or chronic cholecy stitis. Reviewed, dictated and finalized at location A. IMPRESSION: 1. Low gallbladder ejection fraction, consistent with gallbladder dysfunction and/or chronic cholecystitis.
== END 2024-04-25 07:35 | disposition home or self-care (01) ==
PROVIDERS: PCP Family Medicine; Visit Provider Nurse Practitioner Family
DX: R10.13 Epigastric pain (principal); R10.11 Right upper quadrant pain
CPT/HCPCS: 78226; A9537

== ENCOUNTER 2024-06-24 05:52 | Day surgery (SDC) | payer OTHER, SELFPAY ==
[2024-06-16 10:41] VITALS: BMI 25.8
[2024-06-24 08:13] VITALS: BP 120/73; PULSE 81; RESP 18; TEMP 36.1; O2SAT 97; BMI 26.3
[2024-06-24] MEDS: LACTATED RINGERS 1,000 ML 150 ML IV CONT (08:22)
--- NOTE | 2024-06-24 08:35 | WPDANESEPPF ---
Anes - Initial Pre Proc Eval Procedure: Operation Date: 06/24/24 09:30 Proposed Procedures p Esophagogastroduodenoscopy - Godwin Thibodeaux MD Date/Time: 06/24/24 08:35 Surgeon: Godwin Thibodeaux MD Pre Op Diagnosis: GERD, right upper quad pain, epigastric pain Patient Data Age: 58 Gender: F Height: 1.68 m Weight: 74 kg Last Vital Signs Temp 97 F L 06/24/24 08:13 Pulse 81 06/24/24 08:13 Resp 18 06/24/24 08:13 BP 120/73 06/24/24 08:13 Pulse Ox 97 06/24/24 08:13 O2 Del Method Room Air 06/24/24 08:13 Allergies Allergy/AdvReac Type Severity Reaction Status Date / Time No Known Allergies Allergy Mild Verified 06/24/24 08:12 Home Medications Medication Instructions Recorded Confirmed Type ivermectin 1 % topical cream 1 applic topical DAILY 04/30/20 06/24/24 History (Soolantra) calcium 500 mg (as 1 tablet PO DAILY 05/14/20 06/24/24 History carbonate)-vitamin D3 5 mcg (200 unit) tablet (Calcium 500 + D) cholecalciferol (vitamin D3) 50 50 mcg PO DAILY 05/14/20 06/24/24 History mcg (2,000 unit) capsule (Vitamin D3) multivitamin with minerals-folic 1 mg PO DAILY 05/14/20 06/24/24 History acid 0.4 mg tablet (Adult One Daily Multivitamin) cranberry 500 mg capsule 2,000 mg PO DAILY 05/14/21 06/24/24 History ibandronate 150 mg tablet 150 mg PO MONTHLY #3 tabs 02/29/24 06/24/24 Rx pantoprazole 40 mg tablet,delayed See Rx Instructions .Route 03/04/24 06/24/24 Rx release .COMPLEX #90 tabs famotidine 40 mg tablet 40 mg PO QHS #90 tabs 06/02/24 06/24/24 Rx Patient hx anesthesia problems: none Family hx anesthesia problems: none Results Review: All pre-operative results and documents have been reviewed as part of the pre-operative evaluation. [facility], [facility] Past Medical History Medical History Balance problem Dysuria Esophageal spasm Frequency of micturition Gastric ulcer Migraines Osteoporosis Screening mammogram for breast cancer Urgency of micturition Urinary tract infection Surgical History Surgical History History of History of surgical removal of ganglion cyst Family History Family History Father Hypertension Carcinoma of colon Malignant neoplasm of prostate Grandparent Cerebrovascular accident Mother Cerebrovascular accident Sibling No problems noted. Other Family history of coronary artery disease Social History Social History Smoking status: Never smoker Second hand tobacco smoke exposure: No Alcohol intake: current Drinks per week: 3 Alcohol use details: social Substance use: never Substance use type: does not use Do You Feel Safe in your Home?: Yes Lack of Transportation: No Lack of Food: Never True Concerned About Future Housing: No Difficulty Paying Gas/Electric Bills: No Difficulty Paying for Meds: No Currently Unemployed: No Education: Bachelor's Degree Difficulty w/ Childcare or Family Care: No Living arrangements: with family Occupation/Education: occupation 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 Gender identity (if verbalized by the patient): Female Spiritual care concerns: No Anes - Eval Final PreProcedure Day of Procedure 06/24/24 08:35 Patient weight: overweight Heart: regular rate and rhythm Lungs: clear to auscultation Airway: Mallampati scale class II Neurological: alert and oriented Last oral intake: >/= 8 hours ASA classification: II Emergent: no Anesthetic plan: proceed Anesthesia type and monitoring: general GIVS and standard monitoring Results Review: All pre-operative results and documents have been reviewed as part of the pre-operative evaluation. SARAI but not on CPAP. Informed Consent: The patient's anesthetic plan and its attendant risks and benefits were discussed with the patient/family/POA. Questions were solicited and answers provided to the satisfaction of the patient/family/POA.
--- NOTE | 2024-06-24 08:43 | PM.IMHP ---
H&P: HPI History of Present Illness Date/Time: 06/24/24 08:43 Chief Complaint: GERD Narrative: the patient has been suffering from reflux for several years. she has a diagnosis of peptic ulcer on endoscopy 4 years ago. She is currently experiencing almost daily episodes of heartburn on occasion regurgitation. There is no dysphagia, unintentional weight loss or hematemesis. She is here today for EGD. Review of Systems Review of Systems: All systems reviewed & are unremarkable except as noted in HPI and below PMFSH Past Medical History Medical History Balance problem Dysuria Esophageal spasm Frequency of micturition Gastric ulcer Migraines Osteoporosis Screening mammogram for breast cancer Urgency of micturition Urinary tract infection Surgical History Surgical History History of History of surgical removal of ganglion cyst Family History Family History Father Hypertension Carcinoma of colon Malignant neoplasm of prostate Grandparent Cerebrovascular accident Mother Cerebrovascular accident Sibling No problems noted. Other Family history of coronary artery disease Social History Social History Smoking status: Never smoker Second hand tobacco smoke exposure: No Alcohol intake: current Drinks per week: 3 Alcohol use details: social Substance use: never Substance use type: does not use Do You Feel Safe in your Home?: Yes Lack of Transportation: No Lack of Food: Never True Concerned About Future Housing: No Difficulty Paying Gas/Electric Bills: No Difficulty Paying for Meds: No Currently Unemployed: No Education: Bachelor's Degree Difficulty w/ Childcare or Family Care: No Living arrangements: with family Occupation/Education: occupation 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 Gender identity (if verbalized by the patient): Female Spiritual care concerns: No Meds Home Medications and Allergies Home Medications Medication Instructions Recorded Confirmed Type ivermectin 1 % topical cream 1 applic topical DAILY 04/30/20 06/24/24 History (Soolantra) calcium 500 mg (as 1 tablet PO DAILY 05/14/20 06/24/24 History carbonate)-vitamin D3 5 mcg (200 unit) tablet (Calcium 500 + D) cholecalciferol (vitamin D3) 50 50 mcg PO DAILY 05/14/20 06/24/24 History mcg (2,000 unit) capsule (Vitamin D3) multivitamin with minerals-folic 1 mg PO DAILY 05/14/20 06/24/24 History acid 0.4 mg tablet (Adult One Daily Multivitamin) cranberry 500 mg capsule 2,000 mg PO DAILY 05/14/21 06/24/24 History ibandronate 150 mg tablet 150 mg PO MONTHLY #3 tabs 02/29/24 06/24/24 Rx pantoprazole 40 mg tablet,delayed See Rx Instructions .Route 03/04/24 06/24/24 Rx release .COMPLEX #90 tabs famotidine 40 mg tablet 40 mg PO QHS #90 tabs 06/02/24 06/24/24 Rx Allergies Allergy/AdvReac Type Severity Reaction Status Date / Time No Known Allergies Allergy Mild Verified 06/24/24 08:12 Vital Signs Vital Signs - 24 hr 06/24/24 08:13 Temperature 97 F L Pulse Rate 81 Respiratory Rate 18 Blood Pressure 120/73 Pulse Oximetry 97 Oxygen Delivery Room Air Exam Const: General: cooperative and healthy appearing Resp: Effort & Inspection: normal respiratory effort and able to speak in complete sentences Auscultation: clear to auscultation bilaterally Cardio: Rate: regular rate Rhythm: regular rhythm GI: Inspection: normal to inspection GI Palp: No No hepatosplenomegaly present Auscultation: normal bowel sounds Rectal Exam: deferred Skin: General skin exam: normal color Psych: Appearance: grossly normal Mental Status: mental status grossly normal Assessment and Plan Assessment and plan (1) GERD (gastroesophageal reflux disease): Qualifiers: Esophagitis presence: esophagitis presence not specified Qualified Code(s): K21.9 - Gastro-esophageal reflux disease without esophagitis Code(s): K21.9 - Gastro-esophageal reflux disease without esophagitis Status: Acute Assessment and Plan: The patient is deemed a good candidate for the procedure. Consent signed. Will proceed.
[2024-06-24 09:08] VITALS: BP 103/57; PULSE 74; RESP 19; O2SAT 99
[2024-06-24 09:18] VITALS: BP 113/63; PULSE 61; RESP 12; O2SAT 99
[2024-06-24 09:28] VITALS: BP 111/63; PULSE 56; RESP 14; O2SAT 99
== END 2024-06-24 09:44 | disposition home or self-care (01) ==
PROVIDERS: PCP Family Medicine; Referring Provider Nurse Practitioner Family; Visit Provider Internal Medicine Gastroenterology
PROC: 0DJ08ZZ Inspection of Upper Intestinal Tract, Via Natural or Artificial Opening Endoscopic (ICD-10-PCS; CPT 43235; principal; 2024-06-24 09:30)
DX: K21.9 Gastro-esophageal reflux disease without esophagitis (principal); K29.50 Unspecified chronic gastritis without bleeding; K22.4 Dyskinesia of esophagus; M81.0 Age-related osteoporosis without current pathological fracture; R35.0 Frequency of micturition; R39.15 Urgency of urination; Z79.83 Long term (current) use of bisphosphonates; Z98.890 Other specified postprocedural states; Z80.0 Family history of malignant neoplasm of digestive organs; Z80.42 Family history of malignant neoplasm of prostate; Z82.49 Family history of ischemic heart disease and other diseases of the circulatory system
CPT/HCPCS: 43239; 88305; J2003; J2704; J7120

== ENCOUNTER 2024-10-28 00:02 | Day surgery (SDC) | payer OTHER, SELFPAY ==
[2024-10-21 08:59] VITALS: BMI 25.8
--- OUTSIDE RECORDS SUMMARY | 2024-10-28 00:05 | XMS_ITS | Continuity of Care Document ---
Author Organization [facility] Address [address] [place] [address] [address] [place] [address] Phone Care Team Providers Care Sorting Machine Attendant Name Role Phone Schumacher OD, Dani Unavailable Unavailable Procedures Procedure Date Eye Exam & Treatment Refraction Office/outpatient Visit, [facility] Advance Directives Directive Yes / No Effective Date File Name No Information Encounters Encounter Description Practice Location Reason(s) For Visit Diagnoses Date Provider Providers Copied on Encounter [facility], [address] [place] [address] [address], [place], [place], [id number], tel:[phone] [facility] No Information 3-200 9 Schumacher OD Dani. [address] , [address], [place], [address], [place]. tel:[phone] Office/outpat ient Visit, [facility], [address] [place] [address] [address], [place], [place], [id number], tel:[phone] [facility] No Information 3-200 7 Schumacher OD Dani. [address] , [address], [place], [address], [place]. tel:[phone] Family History Family Member Type Diagnosis Age At Onset No Information Payers Payer name Insurance type Covered constitution party ID Authoriza tion(s) No Information Social History Type Description Quantity Date Captured Comments Sex Female Smoking Status No Information Chief Complaint And Reason For Visit No Information Reason For Referral Reason For Referral No Information History Of Present Illness Encounter Date Complaint History Of Prese nt Illness No Information Functional Status Date Functional Assessmen t No Information Instructions Date Instruction Additional Infor mation No Information Assessments Type Assessment Date No Information Patient Care Teams Name Effective Dates (start - stop) Status Members No Information
[2024-10-28 08:42] VITALS: BP 109/59; PULSE 66; RESP 18; TEMP 36.1; O2SAT 100; BMI 25.9
[2024-10-28] MEDS: LACTATED RINGERS 1,000 ML 150 ML IV CONT (08:48)
--- NOTE | 2024-10-28 09:16 | WPDANESEPPF ---
Anes - Initial Pre Proc Eval Procedure: Operation Date: 10/28/24 09:30 Proposed Procedures p Colonoscopy - John Paul Centeno MD Date/Time: 10/28/24 09:16 Surgeon: John Paul Centeno MD Pre Op Diagnosis: family hx of cancer, hx of colon polyps Patient Data Age: 59 Gender: F Height: 1.68 m Weight: 72.8 kg Last Vital Signs Temp 97 F L 10/28/24 08:42 Pulse 66 10/28/24 08:42 Resp 18 10/28/24 08:42 BP 109/59 L 10/28/24 08:42 Pulse Ox 100 10/28/24 08:42 O2 Del Method Room Air 10/28/24 08:42 Allergies Allergy/AdvReac Type Severity Reaction Status Date / Time No Known Allergies Allergy Mild Verified 10/28/24 08:41 Home Medications ?Medication ?Instructions ?Recorded ?Confirmed ?Type ivermectin 1 % topical cream 1 applic topical DAILY 04/30/20 10/28/24 History (Soolantra) calcium 500 mg (as 1 tablet PO DAILY 05/14/20 10/28/24 History carbonate)-vitamin D3 5 mcg (200 unit) tablet (Calcium 500 + D) cholecalciferol (vitamin D3) 50 50 mcg PO DAILY 05/14/20 10/28/24 History mcg (2,000 unit) capsule (Vitamin D3) multivitamin with minerals-folic 1 mg PO DAILY 05/14/20 10/28/24 History acid 0.4 mg tablet (Adult One Daily Multivitamin) cranberry 500 mg capsule 2,000 mg PO DAILY 05/14/21 10/28/24 History pantoprazole 40 mg tablet,delayed See Rx Instructions .Route 03/04/24 10/28/24 Rx release .COMPLEX #90 tabs famotidine 40 mg tablet 40 mg PO QHS #90 tabs 06/02/24 10/28/24 Rx ibandronate 150 mg tablet 150 mg PO MONTHLY #3 tabs 07/28/24 10/28/24 Rx Patient hx anesthesia problems: none Family hx anesthesia problems: none Results Review: All pre-operative results and documents have been reviewed as part of the pre-operative evaluation. [facility] Past Medical History Medical History Urinary tract infection Urgency of micturition Frequency of micturition Dysuria Screening mammogram for breast cancer Esophageal spasm Balance problem Osteoporosis Gastric ulcer Migraines Surgical History Surgical History History of surgical removal of ganglion cyst History of Family History Family History Father Hypertension Carcinoma of colon Malignant neoplasm of prostate Grandparent Cerebrovascular accident Mother Cerebrovascular accident Sibling No problems noted. Other Family history of coronary artery disease Social History Social History Smoking status: Never smoker Second hand tobacco smoke exposure: No Alcohol intake: current Drinks per week: 2 Alcohol use details: Socially Substance use: never Substance use type: does not use Do You Feel Safe in your Home?: Yes Lack of Transportation: No Lack of Food: Never True Concerned About Future Housing: No Difficulty Paying Gas/Electric Bills: No Difficulty Paying for Meds: No Currently Unemployed: No Education: Bachelor's Degree Difficulty w/ Childcare or Family Care: No Living arrangements: with family Occupation/Education: occupation 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 Gender identity (if verbalized by the patient): Female Spiritual care concerns: No Anes - Eval Final PreProcedure Day of Procedure 10/28/24 09:16 Patient weight: normal Heart: regular rate and rhythm Lungs: clear to auscultation Airway: Mallampati scale class II Neurological: alert and oriented Last oral intake: >/= 8 hours ASA classification: II Emergent: no Anesthetic plan: proceed Anesthesia type and monitoring: general GIVS and standard monitoring Results Review: All pre-operative results and documents have been reviewed as part of the pre-operative evaluation. Informed Consent: The patient's anesthetic plan and its attendant risks and benefits were discussed with the patient/family/POA. Questions were solicited and answers provided to the satisfaction of the patient/family/POA.
--- NOTE | 2024-10-28 09:28 | PM.HPGS ---
History of Present Illness History of Present Illness Consent: Risks, benefits, and alternatives have been discussed and questions answered. Patient agrees to proceed with procedure. Chief complaint: family hx of cancer, hx of colon polyps Narrative: Michelle Paulino is a 59 year old female with family history of colon cancer in father, last colonoscopy 2016 Review of Systems Review of Systems: All systems reviewed & are unremarkable except as noted in HPI and below PMFSH Past Medical History Medical History Urinary tract infection Urgency of micturition Frequency of micturition Dysuria Screening mammogram for breast cancer Esophageal spasm Balance problem Osteoporosis Gastric ulcer Migraines Surgical History Surgical History History of surgical removal of ganglion cyst History of Family History Family History Father Hypertension Carcinoma of colon Malignant neoplasm of prostate Grandparent Cerebrovascular accident Mother Cerebrovascular accident Sibling No problems noted. Other Family history of coronary artery disease Social History Social History Smoking status: Never smoker Second hand tobacco smoke exposure: No Alcohol intake: current Drinks per week: 2 Alcohol use details: Socially Substance use: never Substance use type: does not use Do You Feel Safe in your Home?: Yes Lack of Transportation: No Lack of Food: Never True Concerned About Future Housing: No Difficulty Paying Gas/Electric Bills: No Difficulty Paying for Meds: No Currently Unemployed: No Education: Bachelor's Degree Difficulty w/ Childcare or Family Care: No Living arrangements: with family Occupation/Education: occupation 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 Gender identity (if verbalized by the patient): Female Spiritual care concerns: No Meds Home Medications and Allergies Home Medications ?Medication ?Instructions ?Recorded ?Confirmed ?Type ivermectin 1 % topical cream 1 applic topical DAILY 04/30/20 10/28/24 History (Soolantra) calcium 500 mg (as 1 tablet PO DAILY 05/14/20 10/28/24 History carbonate)-vitamin D3 5 mcg (200 unit) tablet (Calcium 500 + D) cholecalciferol (vitamin D3) 50 50 mcg PO DAILY 05/14/20 10/28/24 History mcg (2,000 unit) capsule (Vitamin D3) multivitamin with minerals-folic 1 mg PO DAILY 05/14/20 10/28/24 History acid 0.4 mg tablet (Adult One Daily Multivitamin) cranberry 500 mg capsule 2,000 mg PO DAILY 05/14/21 10/28/24 History pantoprazole 40 mg tablet,delayed See Rx Instructions .Route 03/04/24 10/28/24 Rx release .COMPLEX #90 tabs famotidine 40 mg tablet 40 mg PO QHS #90 tabs 06/02/24 10/28/24 Rx ibandronate 150 mg tablet 150 mg PO MONTHLY #3 tabs 07/28/24 10/28/24 Rx Allergies Allergy/AdvReac Type Severity Reaction Status Date / Time No Known Allergies Allergy Mild Verified 10/28/24 08:41 Vital Signs Vital Signs - 24 hr 10/28/24 08:42 Temperature 97 F L Pulse Rate 66 Respiratory Rate 18 Blood Pressure 109/59 L Pulse Oximetry 100 Oxygen Delivery Room Air Exam Const: General: comfortable and no acute distress HENMT: Face/Nose/Sinus: Normal nares present Eyes: General: appearance normal, both eyes and all related structures Neck: Neck: no JVD Resp: Auscultation: clear to auscultation bilaterally Cardio: Rate: regular rate Rhythm: regular rhythm GI: Inspection: non-distended GI Palp: Yes Soft to palpation Skin: General skin exam: normal color Neuro: General: gait normal Speech: normal speech Extrem: General: normal to inspection Psych: Mental Status: mental status grossly normal Assessment and Plan Assessment and plan (1) Family history of colon cancer: Code(s): Z80.0 - Family history of malignant neoplasm of digestive organs Status: Acute Assessment and Plan: colonoscopy
[2024-10-28 09:43] VITALS: BP 105/57; PULSE 66; RESP 17; O2SAT 98
[2024-10-28 09:53] VITALS: BP 110/62; PULSE 64; RESP 16; O2SAT 97
[2024-10-28 10:03] VITALS: BP 103/47; PULSE 60; RESP 12; O2SAT 100
== END 2024-10-28 10:17 | disposition home or self-care (01) ==
PROVIDERS: PCP Family Medicine; Referring Provider Nurse Practitioner Family; Visit Provider Internal Medicine Gastroenterology
PROC: 0DJD8ZZ Inspection of Lower Intestinal Tract, Via Natural or Artificial Opening Endoscopic (ICD-10-PCS; CPT 45378; principal; 2024-10-28 09:30)
DX: Z12.11 Encounter for screening for malignant neoplasm of colon (principal); K57.30 Diverticulosis of large intestine without perforation or abscess without bleeding; Z80.0 Family history of malignant neoplasm of digestive organs
CPT/HCPCS: 45378; J2003; J2704; J7120

== ENCOUNTER 2024-11-14 15:03 | Outpatient (CLI) | payer OTHER, SELFPAY ==
--- NOTE | ~2024-11-14 | XR_ITS ---
[id number] 11/14/2024 15:27 Indication: Right foot pain Procedure: 4 views right foot Comparison: No prior studies for comparison. 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 N o fracture, subluxation or dislocation. Impression: 1: No acute bone or joint abnormality. Reviewed, dictated and finalized at location A. Impression: 1: No acute bone or joint abnormality.
== END 2024-11-14 15:04 | disposition home or self-care (01) ==
LOC: MICIMG 15:04
PROVIDERS: PCP Family Medicine; Visit Provider Family Medicine
DX: M79.671 Pain in right foot (principal)
CPT/HCPCS: 73630

== ENCOUNTER 2024-11-30 08:03 | Emergency (ER) | payer OTHER, SELFPAY ==
[2024-11-30] VITALS (7 sets, daily range): BP systolic 99–116; BP diastolic 53–72; PULSE 56–72; RESP 16–18; TEMP 36.4; O2SAT 95–100
--- NOTE | ~2024-11-30 | XR_ITS ---
XR chest 2V Ordering provider: Amairani Stroud MD History: 59 years Female with . palpitations . Comparison: None. FINDINGS: MEDIASTINUM: The cardiac silhouette is not enlarged. LUNGS: No infiltrates, effusions or pneumothorax. OTHER: No free air under the diaphragm. IMPRESSION: No acute cardiopulmonary pathology. Reviewed, dictated and finalized at location A.
--- NOTE | 2024-11-30 08:09 | ECG_ITS ---
Test Date: 2024-11-30 08:18:13 Measurements Intervals [place] Rate: 64 P: 49 HI: 156 QRS: 29 QRSD: 88 T: 16 QT: 401 QTc: 415 Interpretive Statements SINUS RHYTHM LOW QRS VOLTAGE IN PRECORDIAL LEADS CANNOT R/O SEPTAL INFARCT, AGE INDETERMINATE BASELINE ARTIFACT- I, II, III, AVR, AVL, AVF, V1, V5 ABNORMAL ECG No previous ECG available for comparison Electronically Signed On 11-30-2024 08:43:04 CDT by Raymundo Ordonez D.O.
--- OUTSIDE RECORDS SUMMARY | 2024-11-30 08:13 | XMS_ITS | Clinical Summary ---
Author Organization [address] Address [address] [place] [id number] Care Team Providers Care Marketing Ambassador Name Role Phone Unknown, Notinfile Primary Care Provider Unavail able Allergies No known active allergies Medications pantoprazole DR (PROTONIX) 40 mg EC tablet Take 1 tablet (40 mg total) by mouth every morning 3 Active ibandronate (BONIVA) 150 mg tablet TAKE 1 TABLET BY MOUTH MONTHLY 3 Active famotidine (PEPCID) 20 mg tablet Take 1 tablet (20 mg total) by mouth daily 3 Active mupirocin (BACTROBAN) 2 % ointmentIndicat ions:Local skin infection Apply topically 3 (three) times a day 22 g 3 Active Active Problems No known active problems Immunizations Immunization Administration Dates Next Due Tdap 02/11/2023 Social History Tobacco Use Types Packs/Day Years Used Date Smoking Tobacco: Never Assessed Comments Unknown Sex and Gender Information Value Date Recorded Sex Assigned at Not on file 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 Gender Identity Not on file Sexual Orientation Not on file Obstetrics History Last Filed Vital Signs Vital Sign Reading Time Taken Comments Blood Pressure 127/74 02/11/2023 7:16 PM CDT Pulse 68 02/11/2023 7:16 PM CDT Temperature 36.9 C (98.4 F) 02/11/2023 7:16 PM CDT Respiratory Rate 18 02/11/2023 7:16 PM CDT Oxygen Saturation 99% 02/11/2023 7:16 PM CDT Inhaled Oxygen Concentration - - Weight 72.5 kg (159 lb 12.8 oz) 02/11/2023 7:16 PM CDT Height 167.6 cm (5' 6 ) 02/11/2023 7:16 PM CDT Body Mass Index 25.79 02/11/2023 7:16 PM CDT Plan of Treatment Health Maintenance Due Date Last Done Comments Breast Cancer Screening-Mammogram 1965 Cervical Cancer Screening 1965 Colon Cancer Screening-Colonoscopy 1965 Depression Screening 1965 Hepatitis C Screening 1965 Hepatitis B Screening 1983 Regular Well Visit/Exam 18-64 1983 Covid-19 Vaccine (4 - 2023-2 5 season) 2024 04/28/2022, 11/25/2020, 10/28/2020 Influenza Vaccine (Season Ended) 2025 06/27/2022, 05/27/2021, 06/04/2020 DTaP/Tdap/Td Vaccine (2 - Td or Tdap) 02/11/2033 02/11/2023 Zoster Vaccine Completed 01/14/2023, 06/27/2022 Pneumococcal vaccine <65 Aged Out No longer eligible based on patient's age to complete this topic Insurance Minimally invasive devices OPEN ACCESS Care Teams Marketing Ambassador Relationship Specialty Start Date End Date Unknown, Notinfile PCP - General 02/11/23
--- OUTSIDE RECORDS SUMMARY | 2024-11-30 08:13 | XMS_ITS | Continuity of Care Document ---
Author Organization [facility] Address [address] [place] [address] [address] [place] [address] Phone Care Team Providers Care Environmental Marketer Name Role Phone Schumacher OD, Dani Unavailable Unavailable Procedures Procedure Date Eye Exam & Treatment Refraction Office/outpatient Visit, [facility] Advance Directives Directive Yes / No Effective Date File Name No Information Encounters Encounter Description Practice Location Reason(s) For Visit Diagnoses Date Provider Providers Copied on Encounter [facility], [address] [place] [address] [address], [place], [place], [id number], tel:[phone] [facility] No Information 3-200 9 Schumacher OD Dani. [address] , [address], [place], [address], [place]. tel:[phone] Office/outpat ient Visit, [facility], [address] [place] [address] [address], [place], [place], [id number], tel:[phone] [facility] No Information 3-200 7 Schumacher OD Dani. [address] , [address], [place], [address], [place]. tel:[phone] Family History Family Member Type Diagnosis Age At Onset No Information Payers Payer name Insurance type Covered libertarian ID Authoriza tion(s) No Information Social History [...]
--- OUTSIDE RECORDS SUMMARY | 2024-11-30 08:13 | XMS_ITS | Referral Summary ---
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
[2024-11-30 08:24] LABS: Basophils Percent Auto 0.8 % (0.2-1.2); Eosinophils Absolute Auto 0.1 K/mm3 (0-0.3); Eosinophils Percent Auto 1.6 % (0-4.4); Hematocrit 45.1 % (37.0-47.0); Hemoglobin 15.1 g/dL (12.0-15.0); Immature Granulocyte Absolute 0.01 K/mm3 (0.00-0.031); Immature Granulocyte Percent A 0.3 % (0-0.5); Lymphocytes Absolute Auto 1.08 K/mm3 (0.9-3.2); Lymphocytes Percent Auto 28.9 % (18.3-44.2); Mean Corpuscular HGB Conc 33.5 g/dl (32-36); Mean Corpuscular Hemoglobin 30.6 pg (26-34); Mean Corpuscular Volume 91.3 fl (80-100); Mean Platelet Volume 8.9 fl (7.4-10.4); Monocytes Absolute Auto 0.3 K/mm3 (0.1-0.6); Monocytes Percent Auto 8.8 % (2.6-8.5); Neutrophils Absolute Auto 2.2 K/mm3 (1.3-6.7); Neutrophils Percent Auto 59.6 % (45.5-73.1); Platelet Count Result 209 k/mm3 (150-375); Red Blood Count 4.94 M/mm3 (4.2-5.4); Red Cell Distribution Width 12.5 % (11.5-14.5); White Blood Count 3.7 K/mm3 (4.5-10.0)
[2024-11-30 08:34] LABS: Alanine Aminotransferase 21 U/L (6-35); Alkaline Phosphatase 61 U/L (38-126); Anion Gap 12 mmol/L (4-12); Aspartate Amino Transferase 22 U/L (14-36); Bilirubin,Total 0.7 mg/dL (0.2-1.3); Blood Urea Nitrogen 17 mg/dL (7-17); Calcium 9.9 mg/dL (8.4-10.2); Carbon Dioxide 24 mmol/L (22-30); Chloride 103 mmol/L (98-107); Estimated CRCL calculation 66 ml/min; Estimated Glomerular Filt Rate > 60; Glucose 96 mg/dL (65-110); Lipase 87 U/L (23-300); Potassium 3.9 mmol/L (3.4-5.0); Sodium 139 mmol/L (137-145)
[2024-11-30 08:39] LABS: INR 0.9; Prothrombin Time 12.7 Seconds (11.1-14.7)
[2024-11-30 08:40] LABS: Partial Thromboplastin Time 26.7 Seconds (22.3-36.8)
[2024-11-30 08:46] LABS: Troponin I < 0.012 ng/mL (0.000-0.034)
--- NOTE | 2024-11-30 10:02 | ED_ITS ---
HPI - Arrhythmia/Palpitations General Chief Complaint: Arrhythmia/Palpitations Stated Complaint: palpitations, light headed Time Seen by Provider: 11/30/24 09:14 Source: patient Mode of arrival: ambulatory Limitations: no limitations History of Present Illness HPI narrative: This is a 59 year old female that presents to the ER for lightheadedness. Ongoing intermittently since yesterday. Reports feeling like her heart is racing. No known alleviating or exacerbating factors. Denies chest pain, shortness of breath, lower extremity edema. Related Data Home Medications ?Medication ?Instructions ?Recorded ?Confirmed ?Last Taken ?Type ivermectin 1 % topical cream 1 applic topical DAILY 04/30/20 10/28/24 10/27/24 History (Soolantra) calcium 500 mg (as 1 tablet PO DAILY 05/14/20 10/28/24 10/27/24 History carbonate)-vitamin D3 5 mcg (200 unit) tablet (Calcium 500 + D) cholecalciferol (vitamin D3) 50 50 mcg PO DAILY 05/14/20 10/28/24 10/27/24 History mcg (2,000 unit) capsule (Vitamin D3) multivitamin with minerals-folic 1 mg PO DAILY 05/14/20 10/28/24 10/27/24 History acid 0.4 mg tablet (Adult One Daily Multivitamin) cranberry 500 mg capsule 2,000 mg PO DAILY 05/14/21 10/28/24 10/27/24 History Allergies Allergy/AdvReac Type Severity Reaction Status Date / Time No Known Allergies Allergy Mild Verified 11/30/24 08:27 Review of Systems 2 Review of Systems: CONSTITUTIONAL: Denies fever CARDIOVASCULAR: Reports palpitations. Denies chest pain, or edema. RESPIRATORY: Denies dyspnea. All systems reviewed & are unremarkable except as noted in HPI and below PMFSH Past Medical History Medical History Urinary tract infection Urgency of micturition Frequency of micturition Dysuria Screening mammogram for breast cancer Esophageal spasm Balance problem Osteoporosis Gastric ulcer Migraines Surgical History Surgical History History of surgical removal of ganglion cyst History of Family History Family History Father Hypertension Carcinoma of colon Malignant neoplasm of prostate Grandparent Cerebrovascular accident Mother Cerebrovascular accident Sibling No problems noted. Other Family history of coronary artery disease Social History Social History Smoking status: Never smoker Second hand tobacco smoke exposure: No Alcohol intake: current Drinks per week: 2 Alcohol use details: Socially Substance use: never Substance use type: does not use Do You Feel Safe in your Home?: Yes Lack of Transportation: No Lack of Food: Never True Concerned About Future Housing: No Difficulty Paying Gas/Electric Bills: No Difficulty Paying for Meds: No Currently Unemployed: No Education: Bachelor's Degree Difficulty w/ Childcare or Family Care: No Living arrangements: with family Occupation/Education: occupation 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 Gender identity (if verbalized by the patient): Female Spiritual care concerns: No Exam 2 Narrative: GENERAL: Well-appearing, well-nourished, and in no acute distress. HEAD: Normocephalic, atraumatic. EYES: EOMI. ENT: Nares clear, no rhinorrhea or epistaxis. Mucous membranes moist. Oropharynx without tonsillar hypertrophy exudate or other lesions. NECK: Supple. No adenopathy or masses. CHEST: Clear to auscultation. No respiratory distress. No wheezes rales or rhonchi HEART: Regular rate and rhythm. No murmur heard. Normal peripheral pulses. EXTREMITIES: Normal range of motion. No edema. SKIN: Warm, dry, no rash. NEURO: No focal deficits. Alert and oriented x3. PSYCH: Normal mood and affect Course Course Emergency Course: Patient updated on her workup and agrees with plan of care Vital Signs Vital signs: Vital Signs Temperature 97.6 F 11/30/24 08:20 Pulse Rate 60 11/30/24 08:20 Respiratory Rate 18 11/30/24 08:20 Blood Pressure 116/54 L 11/30/24 08:20 Pulse Oximetry 99 11/30/24 08:20 Temperature 97.6 F 11/30/24 08:20 Pulse Rate 56 L 11/30/24 11:32 Respiratory Rate 18 11/30/24 11:32 Blood Pressure 106/53 L 11/30/24 11:32 Pulse Oximetry 98 11/30/24 11:32 MDM - Arrhythmia/Palpitations MDM Narrative Medical decision making narrative: Patient presents the emergency department for palpitations, lightheadedness. Ongoing since yesterday. Patient was orthostatic upon arrival, given a L of IV fluids with improvement. She is neurologically intact. CBC shows mild hemoconcentration. Metabolic panel without concerning findings. TSH is normal. EKG shows normal sinus rhythm and baseline troponin is negative. Chest x-ray without acute cardiopulmonary abnormality. Patient updated on her workup and agrees with plan of care. Holter monitor will be placed for further evaluation. She is to follow up with primary provider. She was given warnings to return to the Differential Diagnosis Differential diagnosis: Likely palpitations, anxiety, sinus tachycardia, artial fibrillation, artial flutter, ventricular premature beats and other (Dehydration, electrolyte derangement) Lab Data Attestation: I reviewed the patient's lab results. 11/30/24 08:18 11/30/24 08:18 Labs: Lab Results 11/30/24 Range/Units 08:18 WBC 3.7 L (4.5-10.0) K/mm3 RBC 4.94 (4.2-5.4) M/mm3 Hgb 15.1 H (12.0-15.0) g/dL Hct 45.1 (37.0-47.0) % MCV 91.3 (80-100) fl MCH 30.6 (26-34) pg MCHC 33.5 (32-36) g/dl RDW 12.5 (11.5-14.5) % Plt Count 209 (150-375) k/mm3 MPV 8.9 (7.4-10.4) fl Immature Gran % (Auto) 0.3 (0-0.5) % Neut % (Auto) 59.6 (45.5-73.1) % Lymph % (Auto) 28.9 (18.3-44.2) % Major % (Auto) 8.8 H (2.6-8.5) % Eos % (Auto) 1.6 (0-4.4) % Baso % (Auto) 0.8 (0.2-1.2) % Lymph # (Auto) 1.08 (0.9-3.2) K/mm3 Major # (Auto) 0.3 (0.1-0.6) K/mm3 Eos # (Auto) 0.1 (0-0.3) K/mm3 Baso # (Auto) 0.0 (0.0-0.1) K/mm3 Abs Immat Gran (auto) 0.01 (0.00-0.031) K/mm3 Absolute Neuts (auto) 2.2 (1.3-6.7) K/mm3 Absolute Nucleated RBC 0.000 (0.0-0.012) K/mm3 Nucleated RBC % 0.0 (0.0-0.2) % PT 12.7 (11.1-14.7) Seconds INR 0.9 APTT 26.7 (22.3-36.8) Seconds Sodium 139 (137-145) mmol/L Potassium 3.9 (3.4-5.0) mmol/L Chloride 103 (98-107) mmol/L Carbon Dioxide 24 (22-30) mmol/L Anion Gap 12 (4-12) mmol/L BUN 17 (7-17) mg/dL Creatinine 0.75 (0.7-1.0) mg/dL Estim Creat Clear Calc 66 ml/min Estimated GFR > 60 (59 - ) Glucose 96 (65-110) mg/dL Calcium 9.9 (8.4-10.2) mg/dL Magnesium 2.2 (1.6-2.3) mg/dL Total Bilirubin 0.7 (0.2-1.3) mg/dL AST 22 (14-36) U/L ALT 21 (6-35) U/L Alkaline Phosphatase 61 (38-126) U/L Troponin I < 0.012 (0.000-0.034) ng/mL Total Protein 8.0 (6.3-8.2) g/dL Albumin 5.0 (3.5-5.1) g/dL Lipase 87 (23-300) U/L TSH (Reflex) 1.820 (0.465-4.68) uIU/mL Imaging Data Radiologist's impression: ITS Impressions Chest X-Ray 11/30/24 09:09 IMPRESSION: No acute cardiopulmonary pathology. ECG Data EKG #1: ECG completion date: 11/30/24 EKG Interpretation: normal rate, sinus rhythm, no ST changes and normal QT Critical Care Time Critical Care Time Critical Care Time: No Discharge Plan Discharge Clinical Impression: Palpitations, Episodic lightheadedness Patient Disposition: Home Condition: Stable Instructions: Heart Palpitations (ED), Lightheadedness (ED) Additional Instructions: Return to the emergency department if you experience fever, chest pain, shortness of breath, abdominal pain with nausea and vomiting, weakness, numbness, you pass out, or any other symptoms that are concerning to you. Rest. Remain well hydrated. Stand slowly from seated position Follow up with your primary care doctor Patient Language: [place] Prescriptions: No Action ivermectin [Soolantra] 1 % cream 1 applic TOPICAL DAILY ibandronate 150 mg tablet 150 mg PO MONTHLY Qty: 3 3RF Rx Instructions: 3mo supply calcium carbonate-vitamin D3 [Calcium 500 + D] 500 mg(1,250mg) -200 unit Tablet 1 tablet PO DAILY multivit with min-folic acid [Adult One Daily Multivitamin] 0.4 mg Tablet 1 mg PO DAILY cholecalciferol (vitamin D3) [Vitamin D3] 50 mcg (2,000 unit) Capsule 50 mcg PO DAILY cranberry 500 mg capsule 2,000 mg PO DAILY pantoprazole 40 mg tablet,delayed release (DR/EC) See Rx Instructions .ROUTE .COMPLEX Qty: 90 3RF Dose Instruction: TAKE 1 TABLET BY MOUTH EVERY MORNING Rx Instructions: TAKE 1 TABLET BY MOUTH EVERY MORNING famotidine 40 mg tablet 40 mg PO QHS Qty: 90 3RF Follow-up/Referrals: Kash Estevez MD [Primary Care Provider] -
[2024-11-30 10:17] LABS: Magnesium 2.2 mg/dL (1.6-2.3)
[2024-11-30] MEDS: SODIUM CHLORIDE 0.9% IV 1,000 ML 999 ML IV CONT (10:18)
--- OUTSIDE RECORDS SUMMARY | 2024-11-30 10:56 | XMS_ITS | Continuity of Care Document ---
Author Organization [facility] Address [address] [place] [address] [address] [place] [address] Phone Care Team Providers Care Mohs Surgeon Name Role Phone Schumacher OD, Dani Unavailable Unavailable Procedures Procedure Date Eye Exam & Treatment Refraction Office/outpatient Visit, [facility] Advance Directives Directive Yes / No Effective Date File Name No Information Encounters Encounter Description Practice Location Reason(s) For Visit Diagnoses Date Provider Providers Copied on Encounter [facility], [address] [place] [address] [address], [place], [place], [id number], tel:[phone] [facility] No Information 3-200 9 Schumacher OD Dani. [address] , [address], [place], [address], [place]. tel:[phone] Office/outpat ient Visit, [facility], [address] [place] [address] [address], [place], [place], [id number], tel:[phone] [facility] No Information 3-200 7 Schumacher OD Dani. [address] , [address], [place], [address], [place]. tel:[phone] Family History Family Member Type Diagnosis Age At Onset No Information Payers Payer name Insurance type Covered democrat ID Authoriza tion(s) No Information Social History [...]
--- OUTSIDE RECORDS SUMMARY | 2024-11-30 10:56 | XMS_ITS | Clinical Summary ---
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
--- OUTSIDE RECORDS SUMMARY | 2024-11-30 10:56 | XMS_ITS | Referral Summary ---
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
== END 2024-11-30 12:16 | disposition home or self-care (01) ==
PROVIDERS: Emergency Medicine; Emergency Provider Physician Assistant; PCP Family Medicine
DX: R00.2 Palpitations (principal); R42 Dizziness and giddiness; Z87.440 Personal history of urinary (tract) infections
CPT/HCPCS: 36415; 71046; 80053; 83690; 83735; 84443; 84484; 85025; 85610; 85730; 93005; 93242; 96360; 99284; J7030

== ENCOUNTER 2025-02-24 12:35 | Outpatient (CLI) | payer OTHER, SELFPAY ==
--- NOTE | ~2025-02-24 | MM_ITS ---
EXAMINATION: MM screening magalis BI w paulino HISTORY: Screening TECHNIQUE: Craniocaudal and mediolateral oblique 3-D tomosynthesis images were obtained and synthetic 2-D images were generated. CAD analysis was submitted and interpreted. COMPARISON: Comparison to multiple prior studies sequentially, with oldest reviewed study dated 12/2017. BREAST PARENCHYMAL COMPOSITION: Not dense: There are scattered areas of fibroglandular density. FINDINGS: There is no evidence of suspicious mass, calcification, or architectural distortion to sugg est malignancy in either breast. There has been no suspicious interval change. IMPRESSION: 1. No mammographic evidence of malignancy. 2. Recommend routine screening mammography in one year. BI-RADS Category 1: Negative Reviewed, dictated and finalized at location B.
== END 2025-02-24 12:36 | disposition home or self-care (01) ==
LOC: MICIMG 12:35
PROVIDERS: PCP Family Medicine; Visit Provider Student in an Organized Health Care Education/Training Program
DX: Z12.31 Encounter for screening mammogram for malignant neoplasm of breast (principal)
CPT/HCPCS: 77063; 77067

== ENCOUNTER 2025-07-31 07:35 | Outpatient (CLI) | payer OTHER, SELFPAY ==
--- NOTE | ~2025-07-31 | NM_ITS ---
EXAMINATION: KERRY peña renal scan DATE: 07/31/2025 10:20 INDICATION: Right flank pain TECHNIQUE: 10 mCi Tc-99m MAG3 was administered IV. 40 mg furosemide was administered IV immediately afterward. The patient was scanned in the upright/supine position. A posterior abdominal radionuclide angiogram was obtained. A subsequent time course of static images of the kidneys, ureters, and bladder was obtained. COMPARISON: None FINDINGS: The posterior abdominal radionuclide angiogram and sequential static images show normal size, position, and morphology of the kidneys. Peak renal parenchymal uptake was 4.5 min in left kidney and 5.5 min in right kidney (normal peak 3-5 minutes). The relative early renal uptake was 42% on the left and 58% on the right (<40% is abnormal). No abnormalities of the ureters or bladder are seen. T1/2 for clearance of activity from the left kidney and proximal collecting system was 8 minutes. T1/2 for clearance of activity from the right kidney and proximal collecting system was 7 minutes. Notes on interpretation: T1/2 <10 minutes is normal, 10-15 minutes is low grade obstruction of questionable clinical significance, 15-20 minutes is partial obstruction that is likely clinically significant, >20 minutes is high grade obstruction. Note that false positives may be seen with supine positioning, dehydration, severely dilated nonobstructed kidney, atonic collecting system, poor renal function, and chronic furosemide use. IMPRESSION: 1. Slight asymmetry to the contribution to total renal function which remains within normal limits with left kidney contributing 42% and the right kidney 50% to total renal function. 2. No delay in contrast clearance from either kidney to suggest fixed obstruction. Reviewed, dictated and finalized at location [facility] IMPRESSION: 1. Slight asymmetry to the contribution to total renal function which remains within normal limits with left kidney contributing 42% and the right kidney 50% to total renal function. 2. No delay in contrast clearance from either kidney to suggest fixed obstruct ion.
--- OUTSIDE RECORDS SUMMARY | 2025-07-31 07:40 | XMS_ITS | Clinical Summary ---
Author Organization [facility] Address [address] [place] [address] Care Team Providers Care Business Services Specialist Sales Name Role Phone Luis Antonio Estevez MD Primary Care Provider [phone] Encounters Date Type Department Care Team Description 06/09/2025 2:51 PM CDT - 06/09/2025 11:59 PM CDT Hospital Encounter [facility] [address] [place] [address] Luis Antonio Estevez MD Discharge Disposition: Home or Self Care (Routine Discharge) 06/09/2025 Travel from Last 3 Months Social History Tobacco Use Types Packs/Day Years Used Date Smoking Tobacco: Never Assessed Comments Unknown Sex and Gender Information Value Date Recorded Sex Assigned at Not on file Legal Sex Unknown 05/30/2025 12:19 PM CDT Gender Identity Not on file Sexual Orientation Not on file Plan of Treatment Health Maintenance Due Date Last Done Comments Cervical Cancer Screening Pap Smear (Age 30 to 64) Every 3 Years 1965 Colorectal Cancer Screening Colonoscopy (10 Years) 1965 Annual Physical 1968 Hepatitis C 1983 Hepatitis A Vaccines (1 of 2 - Risk 2-dose series) 1984 Cervical Cancer Screening Pap with HPV Testing (Age 30 to 64) Every 5 Years 1995 Cervical Cancer Screening with HPV 1995 Mammogram Screening 2005 Pneumococcal Vaccine: 50+ Years (1 of 1 - PCV) 2015 COVID-19 Vaccine ( - season) 2025 06/22/2023 Influenza Adult (#1) 2025 07/04/2024, 06/22/2023, 06/27/2022, Additional history exists DTaP, Tdap and Td Vaccines (2 - Td or Tdap) 02/11/2033 02/11/2023 Zoster Vaccines Completed 01/14/2023, 06/27/2022 Meningococcal B Vaccine Aged Out No l onger eligible based on patient's age to complete this topic Meningococcal Vaccine Aged Out No rosalie mary eligible based on patient's age to complete this topic RSV Immunizations Under 20 Months Aged Out No longer eligible based on patient's age to complete this topic Procedures Procedure Name Priority Date/Time Associated Diagnosis Comments CT ABD+PEL W CON Routine 06/09/2025 3:18 PM CDT Right upper quadrant pain Fatty (change of) liver, not elsewhere classified Other specified diseases of gallbladder from Last 3 Months Results * CT ABD+PEL W CON (06/09/2025 3:18 PM CDT) Anatomical Region Laterality Modality Abdomen Computed Tomogra phy 06/09/2025 6:29 PM CDT Impressions 06/09/2025 6:39 PM CDT IMPRESSION: 1. No CT evidence of bowel obstruction or acute appendicitis. 2. Mild right hydroureter, likely physiologic. No retroperitoneal lesion or ureteric stone is identified. A follow-up ureteroscopy be considered for evaluation, as clinically directed. 3. Moderate to large fecal burden within the colon, which can be seen with constipation. 4. Mild diffuse hepatic steatosis. 5. There is a 3 mm left lower lobe pulmonary nodule. If there is increased clinical risk for primary lung cancer. A follow-up CT in 12 months is recommended for further evaluation. Otherwise, no imaging follow-up is needed. Ordered By: LUIS ANTONIO ESTEVEZ Interpreted By: Mariano Michele MD, 06/09/2025 6:29 PM Narrative 06/09/2025 6:39 PM CDT [address] [address] PROCEDURE: CT ABD+PEL W CON HISTORY: Right upper quadrant TECHNIQUE: Helical CT of the abdomen and pelvis was performed using non-ionic intravenous contrast (Isovue-370, 100 mL). No oral contrast was administered. A dose lowering technique was used for this procedure, which may include, but is not limited to, dose reduction technique, automated exposure control, the use of iterative reconstruction, and ALARA (As Low As Reasonably Achievable) / Image Gently techniques. COMPARISON: None FINDINGS CT ABDOMEN/PELVIS: Lower thorax: There is subsegmental atelectasis in the lower lobes. There is a 3 mm left lower lobe pulmonary nodule. The heart is normal in size. Distal esophagus is unremarkable. The heart is normal in size. Liver: The liver is normal in size. There is no intrahepatic mass. Mild diffuse hepatic steatosis. Biliary tree: The gallbladder is present. There is no biliary ductal dilatation. Spleen: The spleen is normal in size. Pancreas: The pancreas is normal in size and enhances homogenously. Adrenal glands: The adrenal glands are normal in size and shape. Kidneys: There are bilateral symmetric nephrograms without hydronephrosis. Mild right hydroureter likely physiologic. Lymph nodes: Abdomen: There is no abdominal adenopathy. Pelvis: There is no pelvic adenopathy. Vasculature: The aorta is normal caliber. Peritoneum/mesentery/omentum: There is no free fluid or free air. GI tract: There is no bowel obstruction. There is a large fecal burden within the colon and rectum. The appendix is normal. There is no abnormal bowel wall thickening to suggest confirmed. Pelvic urogenital structures:The bladder is grossly unremarkable. There are small calcified uterine fibroids. There is no adnexal mass. Body wall: There are degenerative changes in the spine. No aggressive osseous lesions identified. The thoracic vertebral body hemangiomas. Vila: (S/I) = series number / image number Procedure Note Mariano Michele MD - 06/09/[address] [id number] PROCEDURE: CT ABD+PEL W CON HISTORY: Right upper quadrant TECHNIQUE: Helical CT of the abdomen and pelvis was performed usingnon-ionic intravenous contrast (Isovue-370, 100 mL). No oral contrast wasadministered. A dose lowering technique was used for this procedure, which may include,but is not limited to, dose reduction technique, automated exposurecontrol, the use of iterative reconstruction, and ALARA (As Low AsReasonably Achievable) / Image Gently techniques. COMPARISON: None FINDINGS CT ABDOMEN/PELVIS: Lower thorax: There is subsegmental atelectasis in the lower lobes. Thereis a 3 mm left lower lobe pulmonary nodule. The heart is normal in size.Distal esophagus is unremarkable. The heart is normal in size. Liver: The liver is normal in size. There is no intrahepatic mass. Milddiffuse hepatic steatosis. Biliary tree: The gallbladder is present. There is no biliary ductaldilatation. Spleen: The spleen is normal in size. Pancreas: The pancreas is normal in size and enhances homogenously. Adrenal glands: The adrenal glands are normal in size and shape. Kidneys: There are bilateral symmetric nephrograms withouthydronephrosis. Mild right hydroureter likely physiologic. Lymph nodes: Abdomen: There is no abdominal adenopathy. Pelvis: There is no pelvic adenopathy. Vasculature: The aorta is normal caliber. Peritoneum/mesentery/omentum: There is no free fluid or free air. GI tract: There is no bowel obstruction. There is a large fecal burdenwithin the colon and rectum. The appendix is normal. There is no abnormalbowel wall thickening to suggest confirmed. Pelvic urogenital structures:The bladder is grossly unremarkable. Thereare small calcified uterine fibroids. There is no adnexal mass. Body wall: There are degenerative changes in the spine. No aggressiveosseous lesions identified. The thoracic vertebral body hemangiomas. Vila: (S/I) = series number / image number IMPRESSION: 1. No CT evidence of bowel obstruction or acute appendicitis. 2. Mild right hydroureter, likely physiologic. No retroperitoneal lesionor ureteric stone is identified. A follow-up ureteroscopy be consideredfor evaluation, as clinically directed. 3. Moderate to large fecal burden within the colon, which can be seenwith constipation. 4. Mild diffuse hepatic steatosis. 5. There is a 3 mm left lower lobe pulmonary nodule. If there isincreased clinical risk for primary lung cancer. A follow-up CT in 12months is recommended for further evaluation. Otherwise, no imagingfollow-up is needed. Ordered By: LUIS ANTONIO SCHUELER Interpreted By: Mariano Michele MD, 06/09/2025 6:29 PM us Luis Antonio Estevez MD CT Final Result from Last 3 Months Insurance [employer] Care Teams Business Services Specialist Sales Relationship Specialty Start Date End Date Luis Antonio Estevez MD [address] [address] PCP - General FAMILY PRACTICE 06/08/25
--- OUTSIDE RECORDS SUMMARY | 2025-07-31 07:40 | XMS_ITS | Clinical Summary ---
Author Organization [facility] [address] Address [address] [place] [phone] Care Team Providers Care Foreign Language Instructor Name Role Phone Unknown, Notinfile Primary Care [...] Active Active Problems No known active problems Encounters Date Type Department Care Team Description 05/09/2025 Orders Only [facility] Medicine Pediatric Genetics [facility] [address] [place] [address] [place] [address] Junior Ware MD from Last 3 Months Immunizations Immunization Administration Dates Next Due Tdap 02/11/2023 Social History Tobacco Use Types Packs/Day Years Used Date Smoking Tobacco: Never Assessed Comments Unknown Sex and Gender Information Value Date Recorded Sex Assigned at Not on file 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 Gender Identity Not on file Sexual Orientation [...] Weight 72.5 kg (159 lb 12.8 oz) 023 7:16 PM CDT Height 167.6 cm (5' 6) 02/11/2023 7:16 PM CDT Body Mass Index 25.79 02/11/2023 7:16 PM CDT Plan of Treatment Health Maintenance Due Date Last Done Comments Breast Cancer Screening-Mammogram 1965 Cervical Cancer Screening 1965 Colon Cancer Screening-Colonoscopy 1965 Depression Screening 1965 Hepatitis C Screening 1965 Hepatitis B Screening 1983 Regular Well Visit/Exam 18-64 1983 Covid-19 Vaccine (4 - 2024-2 6 season) 2025 04/28/2022, 11/25/2020, 10/28/2020 Influenza Vaccine (#1) 2025 , 05/27/2021, 06/04/2020 DTaP/Tdap/Td Vaccine (2 - Td or Tdap) 02/11/2033 02/11/2023 Zoster Vaccine Completed 01/14/2023, 06/27/2022 Pneumococcal vaccine <65 Aged Out No longer eligible based on patient's age to complete this topic Procedures Procedure Name Priority Date/Time Associated Diagnosis Comments GENOMICS EXTERNAL REPORT Routine 05/09/2025 11:22 AM CDT from Last 3 Months Results * Genomics external report (05/09/2025 11:22 AM CDT) us Junior Ware MD LAB GENETIC TESTING Fi nal Result EXTERNAL LAB from Last 3 Months Insurance [employer] OPEN ACCESS Care Teams Foreign Language Instructor Relationship Specialty Start Date End Date Unknown, Notinfile PCP - General 02/11/23
== END 2025-07-31 07:36 | disposition home or self-care (01) ==
PROVIDERS: PCP Family Medicine; Visit Provider Urology
DX: N13.30 Unspecified hydronephrosis (principal)
CPT/HCPCS: 78708; A9562